=== PATIENT | female | born 1970 | race Native Hawaiian/Other Pacific Islander ===

== ENCOUNTER 2016-06-08 22:53 | Observation (INO) | payer BC ==
[2016-06-08 22:56] VITALS: BMI 29.2
--- NOTE | 2016-06-08 23:09 | ED PDOC ---
Arrival/HPI - General Chief Complaint: Chest Pain Time Seen by Provider: 06/08/16 22:54 Historian: Patient - History of Present Illness Narrative History of Present Illness (Text): 06/08/16 23:04 Chandrika Sterling is a 46 year old female, with a history of intermittent asthma and migraines, presents to the emergency department complaining of palpitations and chills which began 20 minutes prior to arrival. Patient also states that she felt tingling sensation on fingertips few days ago, which has resolved. States that she experienced mild left sided arm weakness when the symptoms presented, but states it has resolved now. Also reports of nausea. Denies fever , headache, dizziness, shortness of breath, diarrhea, vomiting, urinary symptoms or any other complaints at this time. Time/Duration: 1/2 hour Symptom Onset: Gradual Symptom Course: Unchanged Severity Level: Mild Activities at Onset: Light Past Medical History - Provider Review Nursing Documentation Reviewed: Yes - Pulmonary Hx Asthma: (yes; intermittent) - Psychiatric Hx Substance Use: No Family/Social History - Physician Review Nursing Documentation Reviewed: Yes Family/Social History: No Known Family HX Smoking Status: no Hx Alcohol Use: No Hx Substance Use: No Allergies/Home Meds Allergies/Adverse Reactions: Allergies Iodine and Iodide Containing Produc Allergy (Verified 06/08/16 23:01) RASH diphenhydramine [From Benadryl] Adverse Reaction (Verified 06/08/16 23:01) DIZZINESS Review of Systems - Physician Review All systems were reviewed & negative as marked: Yes - Review of Systems Constitutional: absent: Fatigue Respiratory: Normal. absent: SOB, Cough, Sputum Cardiovascular: Palpitations. absent: Chest Pain Gastrointestinal: Nausea. absent: Abdominal Pain, Vomiting, Appetite Changes Genitourinary Female: Normal Neurological: Normal. absent: Headache, Dizziness Psychiatric: Normal Physical Exam Vital Signs Reviewed: Yes Vital Signs Temp Pulse Resp BP Pulse Ox 06/09/16 03:37 84 18 108/71 100 06/09/16 02:00 78 18 118/76 99 06/09/16 00:54 74 16 146/78 100 06/08/16 22:54 98.2 F 78 18 158/88 H 99 Temperature: Afebrile Blood Pressure: Normal Pulse: Regular Respiratory Rate: Normal Appearance: Positive for: Well-Appearing, Non-Toxic, Comfortable Pain Distress: None Mental Status: Positive for: Alert and Oriented X 3 - Systems Exam Head: Present: Atraumatic, Normocephalic Pupils: Present: PERRL Extroacular Muscles: Present: EOMI Conjunctiva: Present: Normal Mouth: Present: Moist Mucous Membranes Neck: Present: Normal Range of Motion Respiratory/Chest: Present: Clear to Auscultation, Good Air Exchange. No: Respiratory Distress, Accessory Muscle Use Cardiovascular: Present: Regular Rate and Rhythm, Normal S1, S2. No: Murmurs Abdomen: Present: Tenderness Back: Present: Normal Inspection Upper Extremity: Present: Normal Inspection. No: Cyanosis, Edema Lower Extremity: Present: Normal Inspection. No: Edema Neurological: Present: GCS=15, CN II-XII Intact, Speech Normal, Motor Func Grossly Intact, Normal Sensory Function Skin: Present: Warm, Dry, Normal Color. No: Rashes Psychiatric: Present: Alert, Oriented x 3, Normal Insight, Normal Concentration Medical Decision Making ED Course and Treatment: 06/08/16 23:11 Impression: A 46 year old female who presents to the emergency department complaining of palpitations which began 20 minutes prior to arrival. Plan: -- EKG -- Labs, cardiac enzymes -- HCG -- Urinalysis -- Reassess and disposition Progress Notes: 06/08/16 23:12 EKG reviewed by me: NSR @ [address] abnormality possible digitalis effect. 06/09/16 01:52 CT Head results reviewed: FINDINGS: Brain: No hemorrhage. No significant white matter disease. No edema. Small fat density lesion in the RIGHT frontal lobe. This may represent a small lipoma. Ventricles: Unremarkable. No ventriculomegaly. Bones/joints: Unremarkable. No acute fracture. Soft tissues: Unremarkable. Sinuses: Unremarkable as visualized. No acute sinusitis. Mastoid air cells: Unremarkable as visualized. No mastoid effusion. IMPRESSION: No evidence of acute intracranial hemorrhage. No midline shift or hydrocephalus. 06/09/16 06:04 Case discussed with who agrees with the plan to observe patient in remote telemetry for chest pain. Accepts a patient under her service. - Lab Interpretations Lab Results: 06/08/16 23:20 06/08/16 23:20 Lab Results 06/09/16 00:00: Urine HCG, Qual Negative 06/09/16 00:00: Urine Color Light yellow, Urine Appearance Slight-cloudy, Urine pH 6.0, Ur Specific [place] <= 1.005, Urine Protein Negative, Urine Glucose (UA ) Negative, Urine Ketones Negative, Urine Blood Large H, Urine Nitrate Negative , Urine Bilirubin Negative, Urine Urobilinogen 0.2, Ur Leukocyte Esterase Negative, Urine RBC 0 - 2, Urine WBC 0 - 2, Ur Epithelial Cells 0 - 2, Urine Bacteria Small 06/08/16 23:20: D-Dimer, Quantitative 0.29 06/08/16 23:20: Sodium 137, Potassium 3.5 L, Chloride 102, Carbon Dioxide 23, Anion Gap 16, BUN 13, Creatinine 0.7, Est GFR ( Amer) > 60, Est GFR (Non- Af Amer) > 60, Random Glucose 169 H, Calcium 9.4, Magnesium 2.0, Total Bilirubin 0.6, AST 27, ALT 31, Alkaline Phosphatase 45, Lactate Dehydrogenase 480, Total Creatine Kinase 282 H, CK-MB (CK-2) 1.3, CK-MB (CK-2) % Cancelled, Troponin I < 0.01, Total Protein 8.1, Albumin 4.1, Globulin 4.0, Albumin/ Globulin Ratio 1.0 L 06/08/16 23:20: WBC 9.3, RBC 4.40, Hgb 13.4, Hct 38.0, MCV 86.4, MCH 30.5, MCHC 35.3, RDW 12.8, Plt Count 274, MPV 9.3, Gran % 57.2, Lymph % (Auto) 31.0, Brown % (Auto) 6.0, Eos % (Auto) 5.5 H, Baso % (Auto) 0.3, Gran # 5.34, Lymph # 2.9, Brown # 0.6, Eos # 0.5, Baso # 0.03 I have reviewed the lab results: Yes - RAD Interpretation Radiology Orders: 06/09/16 00:01 HEAD W/O CONTRAST [CT] Stat CHEST ONE VIEW [RAD] Stat Pants Presser: Radiologist - EKG Interpretation Interpreted by ED Physician: Yes Type: 12 lead EKG - Medication Orders Current Medication Orders: Discontinued Medications Acetaminophen (Tylenol 325mg Tab) 650 mg PO Q4H PRN PRN Reason: Pain, Mild (1-3) Last Admin: 05/02/17 08:19 Dose: 650 mg Aspirin (Ecotrin) 325 mg PO STAT STA Stop: 06/09/16 00:04 Last Admin: 06/09/16 01:31 Dose: 325 mg Naproxen (Anaprox Ds) 550 mg PO ONCE ONE Stop: 06/09/16 11:48 Last Admin: 06/09/16 12:17 Dose: 550 mg Potassium Chloride (K-Dur 20 Meq Er Tab) 20 meq PO ONCE ONE Stop: 06/09/16 03:41 Last Admin: 06/09/16 03:49 Dose: 20 meq - Feribe Statement The provider has reviewed the documentation as recorded by the Flora Martinez Provider Attestation: All medical record entries made by the Flora were at my direction and personally dictated by me. I have reviewed the chart and agree that the record accurately reflects my personal performance of the history, physical exam, medical decision making, and the department course for this patient. I have also personally directed, reviewed, and agree with the discharge instructions and disposition. Disposition/Present on Arrival - Present on Arrival Any Indicators Present on Arrival: No History of DVT/PE: No History of Uncontrolled Diabetes: No Urinary Catheter: No History of Decub. Ulcer: No History Surgical Site Infection Following: None - Disposition Have Diagnosis and Disposition been Completed?: Yes Diagnosis: Chest pain, Palpitations Disposition: HOSPITALIZED Disposition Time: 06:00 Condition: GOOD
[2016-06-08 23:29] LABS: ADD MANUAL DIFF? NO
[2016-06-08 23:35] LABS: BASO # 0.03 K/mm3 (0.0-2.0); BASO % 0.3 % (0.0-3.0); EOS # 0.5 (0.0-0.7); EOS % 5.5 % (1.5-5.0); GRAN # 5.34 (1.4-6.5); GRAN % 57.2 % (50.0-68.0); LYMPH # 2.9 (1.2-3.4); MEAN CELL VOLUME 86.4 fL (80.0-105.0); MEAN CORPUSCULAR HEMOGLOBIN 30.5 pg (25.0-35.0); MEAN CORPUSCULAR HGB CONC 35.3 g/dl (31.0-37.0); MEAN PLATELET VOLUME 9.3 fl (7.0-11.0); MONO # 0.6 (0.1-0.6); PLATELET COUNT 274 10^3/uL (120.0-450.0); RED CELL DISTRIBUTION WIDTH 12.8 % (11.5-14.5); WHITE BLOOD COUNT 9.3 10^3/ul (4.5-11.0)
[2016-06-08 23:42] LABS: ALKALINE PHOSPHATASE 45 U/L (38-133); ALT/SGPT 31 U/L (7-56); AST/SGOT 27 U/L (15-39); BILIRUBIN,TOTAL 0.6 mg/dL (0.2-1.3); BLOOD UREA NITROGEN 13 mg/dL (7-21); CALCIUM 9.4 mg/dL (8.4-10.5); CARBON DIOXIDE 23 mmol/L (21-33); CHLORIDE 102 mmol/L (98-107); GFR AFRICAN-AMERICAN > 60; POTASSIUM 3.5 mmol/L (3.6-5.0); SODIUM 137 mmol/L (132-148); TOTAL PROTEIN 8.1 g/dL (5.8-8.3)
[2016-06-08 23:54] LABS: GLUCOSE,RANDOM 169 mg/dL (70-110); TROPONIN I < 0.01 ng/mL
[2016-06-09] MEDS ORDERED: Aspirin 325 mg EC Tablets PO STA (00:03)
[2016-06-09 00:07] LABS: URINE BILIRUBIN NEGATIVE (NEGATIVE); URINE BLOOD LARGE (NEGATIVE); URINE GLUCOSE (UA) NEGATIVE (NEGATIVE); URINE KETONE NEGATIVE (NEGATIVE); URINE LEUKOCYTE ESTERASE NEGATIVE Leu/uL (NEGATIVE); URINE PROTEIN NEGATIVE mg/dL (<30 mg/dL); URINE UROBILINOGEN 0.2 E.U./dL (<1 E.U./dL)
[2016-06-09 00:09] LABS: URINE APPEARANCE SLIGHT-CLOUDY (CLEAR); URINE COLOR LIGHT YELLOW (YELLOW)
[2016-06-09 00:19] LABS: URINE BACTERIA SMALL (NEG); URINE EPITHELIAL CELLS 0 - 2 /hpf (0-5); URINE RBC 0 - 2 /hpf (0-2); URINE WBC 0 - 2 /hpf (0-6)
[2016-06-09] MEDS ORDERED: Potassium Chloride 20 mEq ER Tab PO ONE (03:40)
[2016-06-09 04:23] VITALS: RESP 20; TEMP 98.6
[2016-06-09 05:22] VITALS: O2SAT 98
--- NOTE | 2016-06-09 07:45 | CT ---
PROCEDURE: CT HEAD WITHOUT CONTRAST. HISTORY: Facial numbness COMPARISON: None available. TECHNIQUE: Axial computed tomography images were obtained through the head/brain without intravenous contrast. Radiation dose: Total exam DLP = 733.86 mGy-cm. This CT exam was performed using one or more of the following dose reduction techniques: Automated exposure control, adjustment of the mA and/or kV according to patient size, and/or use of iterative reconstruction technique. FINDINGS: HEMORRHAGE: No intracranial hemorrhage. BRAIN: Coulter-white matter differentiation is preserved. There is no mass, mass effect or abnormal extra-axial fluid collection. VENTRICLES: The ventricles are normal in size, shape and configuration. CALVARIUM: There is no calvarial fracture or extracranial soft tissue swelling. PARANASAL SINUSES: Predominantly clear. MASTOID AIR CELLS: Predominantly clear. OTHER FINDINGS: None. IMPRESSION: No acute intracranial abnormality. If there is a persistent focal neurologic deficit and an ongoing clinical concern for acute infarction, an MRI of the brain without intravenous contrast would be a more sensitive modality for evaluation of hyperacute/acute ischemic infarction. A preliminary report was provided by [employer].
--- NOTE | 2016-06-09 08:12 | RAD ---
PROCEDURE: CHEST RADIOGRAPH, 1 VIEW HISTORY: pain COMPARISON: None available. FINDINGS: LUNGS: Clear. PLEURA: No pneumothorax or pleural fluid seen. CARDIOVASCULAR: Normal. OSSEOUS STRUCTURES: No significant abnormalities. VISUALIZED UPPER ABDOMEN: Normal. OTHER FINDINGS: None. IMPRESSION: No active disease.
[2016-06-09 10:39] VITALS: BP 122/79; PULSE 72
[2016-06-09] MEDS ORDERED: Naproxen 550 mg Tab PO ONE (11:47)
--- NOTE | 2016-06-09 13:29 | HP ---
HISTORY OF PRESENT ILLNESS: The patient is a 46-year-old seen and examined. The patient has multipl e miscellaneous complaints including chest pressure, pain, more with movement, also complained of ass ociated feelings of tingling in both hands, palpitations, off and on headache, dizziness, lightheaded ness. The patient states she had similar symptoms last year. She had multiple attacks of near synco pe. She went to [facility]. Workup was done, but she did not get any answer. 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 So she went to see some doctor in [place]. They found that she has B12 de ficiency with vitamin D deficiency that she was treated. She felt a little better. She saw her the [facility] doctor a couple of weeks ago, and she was told to see counseling aide, and she has appointment on . PAST MEDICAL HISTORY: She has significant past medical history of multiple episodes of syncope last year, but no conclusive workup was done. She even had Holter placed and was told she was okay. She does admit gaining some weight. ALLERGIES: SHE IS ALLERGIC TO IODINE, IODINE-CONTAINING ____, AND DIPHENHYDRAMINE. MEDICATIONS AT HOME: She just takes multivitamins. Otherwise, she does not take anything. FAMILY HISTORY: Significant for mom of diabetic ketoacidosis, and her father had sudden cardiac arrest. She is very apprehensive about it. SOCIAL HISTORY: She is single, has a daughter, ____, who is 21 years old. 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 REVIEW OF SYSTEMS: Significant for left-sided chest pain, bilateral hand numbness, off and on tingli ng. PHYSICAL EXAMINATION: GENERAL: The patient is awake and alert, communicative. VITAL SIGNS: She is afebrile, pulse 72, respirations 20, blood pressure 122/79. LUNGS: Bilateral fair airflow. No rhonchi or crackle. HEART: S1, S2 audible. ABDOMEN: Soft, nontender. No rebound, no guarding. NEUROLOGIC: She is awake and alert, communicative. EXTREMITIES: Bilateral legs, no edema. LABORATORY DATA: WBC is 9.3, hemoglobin 13.4, hematocrit 38, platelets of 274. Chemistry: Sodium 1 37, potassium 3.5, chloride 103. BUN 13, creatinine 0.7, blood sugar 169. LFTs are within normal li mits. CPK is 282. Troponin is negative. Urinalysis is large blood. She had CT scan of the head done that is negative. X-ray chest is unremarkable. PLAN: The patient was seen by counseling aide, and this chest pain seemed to be muscular. The patient has appointment with cardiology. She will follow up with that counseling aide in 2 weeks. There are no signs of acute coronary syndrome at this point, and since she was admitted, her heart rate has to be running in 70s. Her palpitation could be apprehension and anxiety-related. So plan is I will give her 1 dose of Naprosyn, watch her for a few hours, and if her pain dissipates, she can be discharged home on Xanax on as-needed basis. She will follow with her PMD and counseling aide as outpatient. Marry Vences MD cc: [id number] TT: 06/09/2016 13:28:34 brandy
--- NOTE | 2016-06-09 14:03 | CON ---
DATE: 06/09/2016 REASON FOR CONSULTATION: Cardiac evaluation, chest pain, history of palpitations in the past. Negat allan cardiac workup with stress test and Holter. 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 The patient is being followed by gasket maker. Denies any chest pain, dyspnea on exertion. PAST MEDICAL HISTORY: Nothing significant. SOCIAL HISTORY: Denies smoking. Denies any history of alcohol abuse. FAMILY HISTORY: Significant for coronary artery disease, sudden in father. Also mother has co ronary artery disease, so patient is very much concerned and wanted cardiac evaluation. Previous cardiac workup as follows: The patient had a stress test 1 year ago in [place] and a Cee er, was negative. ALLERGIES: IODINE CONTRAST AND IV BENADRYL. REVIEW OF SYSTEMS: Per HPI. PHYSICAL EXAMINATION: VITAL SIGNS: Temperature afebrile, heart rate 72, blood pressure 122/79. HEENT: PERRLA. Extraocular muscles intact. NECK: Supple. No carotid bruits. No thyromegaly. CHEST: Clear to auscultation. HEART: S1, S2 regular. ABDOMEN: Soft. EXTREMITIES: Clubbing and cyanosis negative. LABORATORY DATA: Blood workup as follows: WBC 9.3, hemoglobin , hematocrit 38, platelet count 274. Chemistry shows sodium 137, potassium 3.5, chloride 102, carbon dioxide 23, anion gap of 13, BU N 7.7, creatinine 0.7, random glucose 169. Total CPK 282. Troponin 0.01. IMPRESSION: Atypical chest pain, no evidence of acute myocardial infarction. EKG pretty benign. On ly risk factor is a family history of coronary artery disease. The patient is still active menstruat ing. RECOMMENDATION: Discussed in length with the patient. The patient has an appointment in [facility] cardiology on 06/23, so suggested to have a stress test followup, which patient is going to have a stress test with the gasket maker. 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 Discussed at length with the pa tient. Also will discuss with Dr. Vences. Thank you, Dr. Vences, for providing the opportunity in taking care of the patient. Fritz Santa MD cc: [id number] TT: 06/09/2016 14:03:09 Confirmation # [id number] Dictation # [id number] rn
--- NOTE | 2016-06-09 22:51 | CARD ---
APPROVED REPORT EKG Measurement Heart [id number] <Conclusion> Normal sinus rhythm ST abnormality, possible digitalis effect Abnormal ECG
--- NOTE | 2016-07-29 22:51 | DS ---
The patient is a 46-year-old, who was admitted on 06/09/2016 with chest pain and pressure, more so on movement. She was found to have atypical chest pain, was evaluated by Dr. Santa. There was no inter vention needed, so she was discharged home on the same day. She was advised to follow with Dr. Santa and to have a stress test done as outpatient. Marry Vences MD cc: [id number] TT: 07/29/2016 22:50:51 ln
== END 2016-06-09 16:26 | disposition home or self-care (01) ==
LOC: ED 22:53 → ERH 06-09 03:13 → 3RSO 06-09 04:20
PROVIDERS: ADMIT Internal Medicine; ATTEND Internal Medicine
DX: R07.89 Other chest pain (principal); R00.2 Palpitations; F41.9 Anxiety disorder, unspecified; J45.20 Mild intermittent asthma, uncomplicated; E55.9 Vitamin D deficiency, unspecified; E53.8 Deficiency of other specified B group vitamins; Z82.49 Family history of ischemic heart disease and other diseases of the circulatory system
CPT/HCPCS: 70450; 71010; 80053; 81001; 82550; 82553; 83615; 83735; 84484; 84703; 85025; 85378; 93005; 99285; G0378

== ENCOUNTER 2016-07-25 05:19 | Observation (INO) | payer BC ==
--- NOTE | 2016-07-25 05:53 | ED PDOC ---
Arrival/HPI - General Chief Complaint: Weakness/Neurological Deficit Time Seen by Provider: 07/25/16 05:27 Historian: Patient - History of Present Illness Narrative History of Present Illness (Text): 07/25/16 06:00 A 46 year old female, whose past medical history includes asthma and migraines, presents to the emergency department complaining of left arm weakness and warmth to left leg that developed 6 hours ago. Patient also notes tongue numbness that developed 2 hours ago. Patient reports her fingers usually feel numb in the mornings. Patient denies headaches, weakness in legs or any other complaints at this time. Symptom Onset: Sudden Symptom Course: Improving Activities at Onset: Rest Context: Home Past Medical History - Provider Review Nursing Documentation Reviewed: Yes - Cardiac Hx Cardiac Disorders: No - Pulmonary Hx Asthma: Yes (yes; intermittent) - Neurological Hx Neurological Disorder: Yes Hx Migraine: Yes - HEENT Hx HEENT Disorder: No (wears glasses) - Renal Hx Renal Disorder: No - Endocrine/Metabolic Hx Endocrine Disorders: No - Hematological/Oncological Hx Blood Disorders: No - Integumentary Hx Dermatological Disorder: No - Musculoskeletal/Rheumatological Hx Falls: No - Gastrointestinal Hx Gastrointestinal Disorders: Yes Hx Gastroesophageal Reflux: Yes - Genitourinary/Gynecological Hx Genitourinary Disorders: Yes Hx Urinary Tract Infection: Yes - Psychiatric Hx Psychophysiologic Disorder: No Hx Substance Use: No Family/Social History - Physician Review Nursing Documentation Reviewed: Yes Family/Social History: No Known Family HX Smoking Status: Current Some Days Smoker Hx Alcohol Use: Yes Frequency of alcohol use: Socially Hx Substance Use: No Allergies/Home Meds Allergies/Adverse Reactions: Allergies Iodine and Iodide Containing Produc Allergy (Verified 06/08/16 23:01) RASH diphenhydramine [From Benadryl] Adverse Reaction (Verified 06/08/16 23:01) DIZZINESS Review of Systems - Physician Review All systems were reviewed & negative as marked: Yes - Review of Systems ENT: Other (tongue numbness) Musculoskeletal: Other (L leg warmth; L arm weakness; no weakness in legs) Neurological: absent: Headache Physical Exam Vital Signs Reviewed: Yes Vital Signs Temp Pulse Resp BP Pulse Ox 07/25/16 05:26 98.4 F 79 16 134/90 98 Temperature: Afebrile Blood Pressure: Normal Pulse: Regular Respiratory Rate: Normal Appearance: Positive for: Well-Appearing, Non-Toxic, Comfortable Pain Distress: None Mental Status: Positive for: Alert and Oriented X 3 - Systems Exam Head: Present: Atraumatic, Normocephalic Pupils: Present: PERRL Extroacular Muscles: Present: EOMI Conjunctiva: Present: Normal Mouth: Present: Moist Mucous Membranes Neck: Present: Normal Range of Motion Respiratory/Chest: Present: Clear to Auscultation, Good Air Exchange. No: Respiratory Distress, Accessory Muscle Use Cardiovascular: Present: Regular Rate and Rhythm, Normal S1, S2. No: Murmurs Abdomen: Present: Normal Bowel Sounds. No: Tenderness, Distention, Peritoneal Signs Back: Present: Normal Inspection Upper Extremity: Present: Normal Inspection. No: Cyanosis, Edema Lower Extremity: Present: Normal Inspection. No: Edema Neurological: Present: GCS=15, CN II-XII Intact, Speech Normal, Other ( subjectively decrease sensation in L side of face) Skin: Present: Warm, Dry, Normal Color. No: Rashes Psychiatric: Present: Alert, Oriented x 3, Normal Insight, Normal Concentration Medical Decision Making ED Course and Treatment: 07/25/16 05:51 EKG: Ordered, reviewed, and independently interpreted the EKG. Rate : 80 BPM Rhythm : NSR Interpretation : Normal axis, Normal intervals, No acute ischemia Comparison : No previous EKG for comparison. - Lab Interpretations Lab Results: 07/25/16 05:30 07/25/16 05:30 Lab Results 07/25/16 06:37: POC Glucose (mg/dL) 111 H 07/25/16 05:30: Sodium 135, Potassium 4.7, Chloride 104, Carbon Dioxide 20 L, Anion Gap 16, BUN 19, Creatinine 0.7, Est GFR ( Amer) > 60, Est GFR (Non- Af Amer) > 60, Random Glucose 103, Calcium 9.0, Total Bilirubin 1.6 H, AST 47 H , ALT 11, Alkaline Phosphatase 45, Troponin I 0.02 D, Total Protein 8.2, Albumin 4.4, Globulin 3.8, Albumin/Globulin Ratio 1.2, Triglycerides 1433 H, Cholesterol 156, LDL Cholesterol Direct < 30, HDL Cholesterol 15 L 07/25/16 05:30: WBC 11.0, RBC 4.55, Hgb 14.3, Hct 39.6, MCV 87.0, MCH 31.4, MCHC 36.1, RDW 12.8, Plt Count 270, MPV 9.9, Gran % 69.0 H, Lymph % (Auto) 19.9 L, [place] % (Auto) 6.7 H, Eos % (Auto) 4.2, Baso % (Auto) 0.2, Gran # 7.61 H, Lymph # 2.2, [place] # 0.7 H, Eos # 0.5, Baso # 0.02 - RAD Interpretation Radiology Orders: 07/25/16 05:52 CHEST PORTABLE [RAD] Stat 07/25/16 05:53 HEAD W/O CONTRAST [CT] Stat - EKG Interpretation Interpreted by ED Physician: Yes Type: 12 lead EKG - Medication Orders Current Medication Orders: Discontinued Medications Aspirin (Aspirin Chewable) 324 mg PO STAT STA Stop: 07/25/16 07:13 NIHSS Scale ([place]) Time Performed: 05:35 rTPA Inclusion/Exclusion - Refusal of Treatment Patient Refused Treatment: No - Inclusion Criteria for Altepase Patient is 18 years or Older: Yes The Clinical Diagnosis of Ischemic Stroke That is Causing a Potentially Disabling Neurological Deficit: Yes Time of Onset is Well Established to be Less Than 270 Minute Before Treatment Would Begin: No Risk/Benefit Discussed With Patient/Family Member Present: No NIHSS Stroke Scale 3 - Date/Time Evaluation Performed Time Performed: 05:35 - How Severe is the Stroke Level of Consciousness: 0=Alert LOC to Questions: 0=Both comments correct LOC to commands: 0=Obeys both correctly Best Gaze: 0=Normal Visual: 0=No visual loss Facial: 0=Normal Motor Arm - Left: 0=No drift Motor Arm - Right: 0=No drift Motor Leg - Left: 0=No drift Motor Leg - Right: 0=No drift Limb Ataxia: 0=Absent Sensory: 1=Mild to moderate loss Best Language: 0=No aphasia Dysarthia: 0=Normal articulation Extinction & Inattention (Neglect): 0=Normal, no object Score: 1 Severity Of Stroke: 1-4 = Minor Stroke - Scribe Statement The provider has reviewed the documentation as recorded by the Feribfranca Brown Provider Scribe Attestation: All medical record entries made by the Scribe were at my direction and personally dictated by me. I have reviewed the chart and agree that the record accurately reflects my personal performance of the history, physical exam, medical decision making, and the department course for this patient. I have also personally directed, reviewed, and agree with the discharge instructions and disposition. Disposition/Present on Arrival - Present on Arrival Any Indicators Present on Arrival: No History of DVT/PE: No History of Uncontrolled Diabetes: No Urinary Catheter: No History of Decub. Ulcer: No History Surgical Site Infection Following: None - Disposition Have Diagnosis and Disposition been Completed?: Yes Diagnosis: Left-sided weakness Disposition Time: 07:00 Condition: STABLE
[2016-07-25 06:20] LABS: ADD MANUAL DIFF? NO
[2016-07-25 06:25] LABS: BASO # 0.02 K/mm3 (0.0-2.0); BASO % 0.2 % (0.0-3.0); EOS # 0.5 (0.0-0.7); EOS % 4.2 % (1.5-5.0); GRAN # 7.61 (1.4-6.5); HEMATOCRIT 39.6 % (36.0-48.0); LYMPH # 2.2 (1.2-3.4); LYMPH % 19.9 % (22.0-35.0); MEAN CORPUSCULAR HEMOGLOBIN 31.4 pg (25.0-35.0); MEAN CORPUSCULAR HGB CONC 36.1 g/dl (31.0-37.0); MEAN PLATELET VOLUME 9.9 fl (7.0-11.0); MONO # 0.7 (0.1-0.6); MONO % 6.7 % (1.0-6.0); PLATELET COUNT 270 10^3/uL (120.0-450.0); RED CELL DISTRIBUTION WIDTH 12.8 % (11.5-14.5)
[2016-07-25 06:35] LABS: ALB/GLOB RATIO 1.2 (1.1-1.8); ALKALINE PHOSPHATASE 45 U/L (38-133); ALT/SGPT 11 U/L (7-56); AST/SGOT 47 U/L (15-39); BILIRUBIN,TOTAL 1.6 mg/dL (0.2-1.3); BLOOD UREA NITROGEN 19 mg/dL (7-21); CARBON DIOXIDE 20 mmol/L (21-33); CHLORIDE 104 mmol/L (98-107); CHOLESTEROL 156 mg/dL (130-200); GFR AFRICAN-AMERICAN > 60; GLUCOSE,RANDOM 103 mg/dL (70-110); POTASSIUM 4.7 mmol/L (3.6-5.0); SODIUM 135 mmol/L (132-148); TOTAL PROTEIN 8.2 g/dL (5.8-8.3)
[2016-07-25 06:44] LABS: TROPONIN I 0.02 ng/mL
--- NOTE | 2016-07-25 07:07 | CT ---
EXAM: CT Head Without Intravenous Contrast CLINICAL HISTORY: 46 years old, female; Signs and symptoms; Dizziness; Additional info: Left side weak TECHNIQUE: Axial computed tomography images of the head/brain without intravenous contrast. This CT exam was performed using one or more of the following dose reduction techniques: automated exposure control, adjustment of the mA and/or kV according to patient size, and/or use of iterative reconstruction technique. COMPARISON: CT - HEAD W/O CONTRAST 06/09/2016 1:03:23 AM FINDINGS: Brain: Examination of the brain demonstrates normal structure and attenuation.The cortical baeza / white matter interfaces are preserved throughout the brain.No acute infarction, masses or hemorrhage is seen. No acute intracranial abnormality is identified.There is no hyperdense MCA sign.Examination of the posterior fossa demonstrates no significant abnormality. 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 No edema. Ventricles: The ventricular system is not dilated and is appropriate for the patient's age. Bones/joints: Unremarkable. No acute fracture. Soft tissues: Unremarkable. Sinuses: Unremarkable as visualized. No acute sinusitis. Mastoid air cells: Unremarkable as visualized. No mastoid effusion. IMPRESSION: No acute infarction, masses or hemorrhage is seen. No acute intracranial abnormality is identified.There has been no adverse interval change since the previous study.
--- NOTE | 2016-07-25 09:21 | RAD ---
HISTORY: weak COMPARISON: Chest x-ray performed 06/09/16 TECHNIQUE: Chest, one view. FINDINGS: External cardiac monitoring leads present. LUNGS: No focal consolidation. 1.4 cm rounded density at the right lung base. Please note that chest x-ray has limited sensitivity for the detection of pulmonary masses. PLEURA: No significant pleural effusion identified. No definite pneumothorax . CARDIOVASCULAR: The cardiomediastinal silhouette appears within normal limits of size. OSSEOUS STRUCTURES: No acute osseous abnormality identified. VISUALIZED UPPER ABDOMEN: Unremarkable. OTHER FINDINGS: None. IMPRESSION: No focal consolidation, significant pleural effusion, or definite pneumothorax identified. 1.3 cm nodular density is noted at the right lung base. Considerations include nipple shadow however pulmonary nodule cannot be excluded. Outpatient repeat chest x-ray with nipple markers or CT of the chest suggested for further evaluation. Findings discussed with YULIET Witt on 07/25/16 at 9:17 a.m..
[2016-07-25] MEDS ORDERED: Sodium Chloride 0.45% 1,000 ML IV SCH (10:30)
[2016-07-25 13:04] VITALS: BMI 30.2
[2016-07-25] MEDS ORDERED: Pneumococcal 23-Valent Vaccine IM ONE (13:05)
--- NOTE | 2016-07-25 14:09 | CON ---
DATE: 07/25/2016 CHIEF COMPLAINT: Left-sided weakness. HISTORY OF PRESENT ILLNESS: A 46-year-old woman with history of migraine headaches, asthma who prese nted with left arm weakness and some paresthesias said she has noticed of the tongue. She has been g etting migraine headaches average of once week and has recently been stressed. She had elevated trig lyceride levels of 1433. She has a family history of hypertriglyceridemia as well. She does not mikala e a daily aspirin. Currently, no focal weakness of the extremities. No pronator drift seen. CT hea d showed no acute intracranial abnormalities. She denies any headaches at this time. PAST MEDICAL HISTORY: Asthma, migraines. REVIEW OF SYSTEMS: 14-point review of systems negative except as per HPI. SOCIAL HISTORY: No illicit drug use, smoking, or ETOH abuse. ALLERGIES: ALLERGIC TO IODINE AND DIPHENHYDRAMINE. FAMILY HISTORY: Noncontributory. PHYSICAL EXAMINATION: VITAL SIGNS: Temperature 98.4, pulse rate of 87, blood pressure 148/92, respiratory rate 16. GENERAL: The patient is sitting up in bed in no acute distress. HEENT: Atraumatic, normocephalic. PERRLA. Extraocular muscles intact. NECK: Supple, no JVD, no adenopathy noted. LUNGS: Clear to auscultation. No adventitious sounds. HEART: S1, S2, normal rate and rhythm. No murmurs, rubs, or gallops. ABDOMEN: Soft, nontender, nondistended. Bowel sounds are present. EXTREMITIES: No clubbing, no cyanosis. Peripheral pulses 2+ felt bilaterally. LABORATORIES: Sodium 135, potassium 4.7, chloride 104, carbon dioxide 20, BUN of 19, creatinine 0.7, random glucose of 103. Triglycerides of 1433. ASSESSMENT AND PLAN: This is a 46-year-old woman with history of migraine headaches, history of asth ma who came in with left arm weakness, but no left weakness without any headaches and some paresthesi as of her tongue. She has been getting really stressed recently, has been having migraine headaches at least 1 week. At this time, her neuro exam is nonfocal, but she has hypertriglyceridemia on her l abs. IMPRESSION: I feel like her presentation is more of a migraine phenomena with motor aura and migrain e without headache, given that she has motor aura which has subsided. AT THIS TIME, RECOMMEND: 1. Aspirin 81 mg with breakfast every morning. 2. Address her underlying hypertriglyceridemia. May need to be on a fibrate and low fat and low car bohydrate diet. 3. Advise weight reduction. 4. Will recommend to follow up with me in outpatient for further headache, migraine management. 5. Could consider coenzyme Q10 400 mg p.o. daily for headache prevention as well as will help with h er cholesterol issues. At this time, continue with current present medical management. She is clini lamin stable from my standpoint. Kasi Bryant MD cc: [id number] TT: 07/25/2016 14:09:32 Confirmation # [id number] Dictation # [id number]
--- NOTE | 2016-07-25 15:12 | HP ---
I saw the patient in her room this morning. She is comfortable, maybe a little bit better than when she came in last night through the Emergency Room. She is a 46-year-old female who comes in with wea kness in the left arm, warmth to the left leg, about 6 hours ago. The tongue was numb. That also de veloped 2 hours earlier to the ER. Fingers felt numb in the morning, although no headache or weaknes s in the legs. PAST MEDICAL HISTORY: She has a past medical history that includes migraines and asthma. She wears glasses. She has GERD. She had urinary tract infections in the past. FAMILY HISTORY: There is no known family history. SOCIAL HISTORY: She smokes sometimes. She drinks alcohol socially, no substance abuse. ALLERGIES: SHE HAS ALLERGIES TO IODINE AND BENADRYL. MEDICATIONS: She is not taking any medications. REVIEW OF SYSTEMS: No changes in vision or hearing. Tongue is numb, the lips are numb. Throat is o kristen. Neck is okay. Left side is weak, that is the left arm, left shoulder feels drooped her. No ch est pain or palpitations. No shortness of breath or coughing, no abdominal pain. The left leg felt numb and weak on the left side. Both legs felt weak. This is a new onset of less than 6-8 hours. PHYSICAL EXAMINATION VITAL SIGNS: She has a 98.4 temp, 79 pulse, 16 respiratory rate, 134/90 blood pressure, 98% O2 sat o n room air. GENERAL: Head atraumatic, normocephalic, well appearing, nontoxic, comfortable, alert and talking fi ne, alert and oriented x 3. Extraocular muscles are intact. Pupils reactive to light and accommodat ion. HEENT: Normocephalic, atraumatic. Throat is moist, no erythema. NECK: Supple, no JVD. HEART: Regular rate. Normal S1, S2. LUNGS: Clear to auscultation bilaterally. ABDOMEN: Soft, nontender, positive bowel sounds, no guarding, no rebound, no CVA tenderness. EXTREMITIES: No edema of the lower extremities. She tells that the left side is a little bit droopy and weak. Right now I do not see the legs being weak, maybe the left shoulder could be a little bit drooped. NEUROLOGIC: GCS is 15. Cranial nerves II-XII grossly intact. Speech is normal. Tongue is midline. Equal strength bilaterally. The left face is fine. Maybe decreased sensation in the face, the lip s. SKIN: Warm and dry. PSYCHIATRIC: Alert and oriented x 3. NECK: Thyroid midline, nonpalpable. Appreciable lymphadenopathy. LABORATORY DATA: She had a 135 sodium, potassium 4.7, BUN 19, creatinine 0.7, GFR is greater than 60 , sugar is 103, calcium is 9, total bili is 1.6, AST is 47, ALT is 11, alkaline phosphatase is 45. T roponin I is 0.02. Total protein is 8.2, albumin is 4.4, triglycerides of 1433, abel high, cholestero l is 156, LDL of less than 30, HDL 15, white count, 11, hemoglobin 14.3, hematocrit 39.6, platelets a re 270. She had a head CT. Head CT states no acute infarction or masses. Chest x-ray shows no focal consolidation. Has a 1.3 cm nodular density which could be a nipple shado w. She will have consults with GI for the elevated triglycerides. Annette for numbness and tingling. Dr. Dixon for the blood pressure. She will be on IV fluids, aspirin, Norvasc, Tricor, Zofran for nauseousness. She is having carotid D opplers done. A brain MRI is pending. An echo is pending. She will be able to eat. We will get ph ysical therapy involved. She is here for numbness and tingling and left side weakness, with high tri glycerides and hypertension. Ming Chambers DO cc: [id number] TT: 07/25/2016 15:11:31 ln
--- NOTE | 2016-07-25 15:45 | CARD ---
APPROVED REPORT EKG Measurement Heart [id number] [place] [id number] [id number] <Conclusion> Normal sinus rhythm Normal ECG
--- NOTE | 2016-07-25 18:51 | CON ---
DATE: 07/25/2016 REASON FOR CONSULTATION: Left arm weakness. HISTORY OF PRESENT ILLNESS: The patient is a 46-year-old female who has a history of bronchial asthm a and migraines in the past. She presented because of left arm weakness as hot feeling involving the left leg and the left side of the face. The patient denies any speech difficulty; however, she did recall at the time of calling EMS, when EMS asked the patient about the address, the patient could no t remember and at this time she asked her daughter in the house about the exact addresses. The patie nt recovered all her symptoms after arriving to the telemetry unit. The patient denies any headache or blurry vision or speech difficulty. SOCIAL HISTORY: The patient is a nonsmoker. 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 REVIEW OF SYSTEMS: No nausea or vomiting, no fever or chills. MEDICATIONS: Aspirin 81 mg once a day, Norvasc 2.5 mg once a day, half normal saline at 60 mL an greg r, Tricor 145 mg once a day, Zofran 4 mg intravenously q.6 hours p.r.n. PHYSICAL EXAMINATION: GENERAL: The patient is a middle-aged female who does not appear to be in any distress. VITAL SIGNS: Blood pressure 148/92, heart rate 87, temperature 98.4, respirations 16. HEENT: Normocephalic. NECK: No JVD. CHEST: Clear. HEART: S1, S2 regular. ABDOMEN: Soft. EXTREMITIES: No edema. LABORATORY DATA: CBC: WBC 11, hemoglobin 14.3, hematocrit 39.6, platelet count 270,000. SMA-7: So dium 135, potassium 4.7, chloride 104, CO2 of 20, glucose 103, BUN 19, creatinine 0.7. Triglycerides elevated at 1433, HDL cholesterol is below normal at 15. TSH level is within normal limit. Troponi n 0.02. Head CT scan: No acute intracranial mass or hemorrhage seen. No acute intracranial abnorma lity. EKG revealed normal sinus rhythm. ASSESSMENT: 1. Uncontrolled hypertension. 2. Rule out transient ischemic attack. 3. Hyperlipidemia. RECOMMENDATIONS: Continue aspirin 81 mg once a day, Norvasc 2.5 mg once a day, Tricor 145 mg once a day. I will review the echocardiographic study performed today and follow up carotid Doppler. Igor Bernal MD cc: [id number] TT: 07/25/2016 18:50:53 Confirmation # [id number] Dictation # [id number] dn
--- NOTE | 2016-07-25 18:53 | US ---
PROCEDURE: Bilateral carotid artery duplex ultrasound HISTORY: Carotid stenosis PHYSICIAN(S): Oli Sumner MD. TECHNIQUE: Duplex sonography and color-flow Doppler were used to evaluate the carotid bifurcations and limited segments of the vertebral arteries bilaterally. FINDINGS: There is mild smooth hypoechoic plaque noted at the carotid bifurcations bilaterally. The peak systolic velocity in the proximal right internal carotid artery is 94 cm/sec. This corresponds to a 20 to 39% proximal right ICA stenosis. Normal systolic velocities are noted in the proximal right external carotid artery. There is antegrade flow in the right vertebral artery. The peak systolic velocity in the proximal left internal carotid artery is 82 cm/sec. This corresponds to a 20 to 39% proximal left ICA stenosis. Normal systolic velocities are noted in the proximal left external carotid artery. There is antegrade flow in the left vertebral artery. IMPRESSION: 1. Bilateral 20-39% proximal ICA stenoses. 2. Antegrade flow in both vertebral arteries.
--- NOTE | 2016-07-25 23:02 | CP.PCM.PN ---
Subjective - Date & Time of Evaluation Date of Evaluation: 07/25/16 Time of Evaluation: 23:02 - Subjective Subjective: Nurse calls and tells that patient has headache. BP is 128/87----->BP was 117/77 when I arrived. Seen at bedside. Complains of headache in both eyes and back of neck.Has had head ache for all day. Similar pain as migraines that she suffers from. Also, she had some numbness in left palm but it is better now. Also has complaint of funny feeling in right palm. Has no other complaints now. No more weakness in left upper arm and leg that she came in with. ROS:Neg except as mentioned above. Medical record was reviewed. This 46 year old woman came in with complaint of weakness in left arm , warmth in left leg Has PMH of migraines, obesity, asthma , GERD , UTI, refractory error. Objective - Vital Signs/Intake and Output Vital Signs (last 24 hours): Temp Pulse Resp BP Pulse Ox 98.2 F 83 18 128/87 98 07/25/16 17:45 07/25/16 18:00 07/25/16 17:45 07/25/16 17:45 07/25/16 07:29 - Medications Medications: Current Medications Amlodipine Besylate (Norvasc) 2.5 mg PO DAILY [facility] Last Admin: 07/25/16 11:00 Dose: 2.5 mg Aspirin (Aspirin Chewable) 81 mg PO DAILY [facility] Fenofibrate (Tricor) 145 mg PO DAILY [facility] Last Admin: 07/25/16 11:00 Dose: 145 mg Sodium Chloride (Sodium Chloride 0.45%) 1,000 mls @ 60 mls/hr IV .[id number] [facility] Last Admin: 07/25/16 11:03 Dose: 60 mls/hr Ondansetron HCl (Zofran Inj) 4 mg IVP Q6H PRN PRN Reason: Nausea/Vomiting Last Admin: 07/25/16 15:16 Dose: 4 mg - Labs Labs: Most Recent Lab Values WBC 11.0 10^3/ul (4.5-11.0) 07/25/16 05:30 RBC 4.55 10^6/uL (3.5-6.1) 07/25/16 05:30 Hgb 14.3 gm/dL (12.0-16.0) 07/25/16 05:30 Hct 39.6 % (36.0-48.0) 07/25/16 05:30 MCV 87.0 fL (80.0-105.0) 07/25/16 05:30 MCH 31.4 pg (25.0-35.0) 07/25/16 05:30 MCHC 36.1 g/dl (31.0-37.0) 07/25/16 05:30 RDW 12.8 % (11.5-14.5) 07/25/16 05:30 Plt Count 270 10^3/uL (120.0-450.0) 07/25/16 05:30 MPV 9.9 fl (7.0-11.0) 07/25/16 05:30 Gran % 69.0 % (50.0-68.0) H 07/25/16 05:30 Lymph % (Auto) 19.9 % (22.0-35.0) L 07/25/16 05:30 [place] % (Auto) 6.7 % (1.0-6.0) H 07/25/16 05:30 Eos % (Auto) 4.2 % (1.5-5.0) 07/25/16 05:30 Baso % (Auto) 0.2 % (0.0-3.0) 07/25/16 05:30 Gran # 7.61 (1.4-6.5) H 07/25/16 05:30 Lymph # 2.2 (1.2-3.4) 07/25/16 05:30 [place] # 0.7 (0.1-0.6) H 07/25/16 05:30 Eos # 0.5 (0.0-0.7) 07/25/16 05:30 Baso # 0.02 K/mm3 (0.0-2.0) 07/25/16 05:30 Sodium 135 mmol/L (132-148) 07/25/16 05:30 Potassium 4.7 mmol/L (3.6-5.0) 07/25/16 05:30 Chloride 104 mmol/L (98-107) 07/25/16 05:30 Carbon Dioxide 20 mmol/L (21-33) L 07/25/16 05:30 Anion Gap 16 (10-20) 07/25/16 05:30 BUN 19 mg/dL (7-21) 07/25/16 05:30 Creatinine 0.7 mg/dL (0.5-1.4) 07/25/16 05:30 Est GFR ( Amer) > 60 07/25/16 05:30 Est GFR (Non-Af Amer) > 60 07/25/16 05:30 POC Glucose (mg/dL) 93 mg/dL (65-110) 07/25/16 21:38 Random Glucose 103 mg/dL (70-110) 07/25/16 05:30 Calcium 9.0 mg/dL (8.4-10.5) 07/25/16 05:30 Total Bilirubin 1.6 mg/dL (0.2-1.3) H 07/25/16 05:30 AST 47 U/L (15-39) H 07/25/16 05:30 ALT 11 U/L (7-56) 07/25/16 05:30 Alkaline Phosphatase 45 U/L (38-133) 07/25/16 05:30 Troponin I 0.02 ng/mL D 07/25/16 05:30 Total Protein 8.2 g/dL (5.8-8.3) 07/25/16 05:30 Albumin 4.4 g/dL (3.0-4.8) 07/25/16 05:30 Globulin 3.8 gm/dL 07/25/16 05:30 Albumin/Globulin Ratio 1.2 (1.1-1.8) 07/25/16 05:30 Triglycerides 1433 mg/dL (35-160) H 07/25/16 05:30 Cholesterol 156 mg/dL (130-200) 07/25/16 05:30 LDL Cholesterol Direct < 30 mg/dL (0-129) 07/25/16 05:30 HDL Cholesterol 15 mg/dL (29-60) L 07/25/16 05:30 TSH 3rd Generation 0.68 mIU/mL (0.46-4.68) 07/25/16 11:40 Blood Type A POSITIVE 07/25/16 05:30 Blood Type Confirm A POSITIVE 07/25/16 15:00 Antibody Screen Negative 07/25/16 05:30 BBK History Checked No verified bt 07/25/16 05:30 - Constitutional Appears: Well, No Acute Distress - Head Exam Head Exam: NORMAL INSPECTION, NORMOCEPHALIC - Eye Exam Eye Exam: Normal appearance, PERRL - ENT Exam ENT Exam: Normal External Ear Exam - Neck Exam Neck Exam: Normal Inspection - Respiratory Exam Respiratory Exam: NORMAL BREATHING PATTERN - Cardiovascular Exam Cardiovascular Exam: absent: JVD - GI/Abdominal Exam GI & Abdominal Exam: absent: Distended - Rectal Exam Rectal Exam: Deferred - Extremities Exam Extremities Exam: Normal Inspection - Back Exam Back Exam: NORMAL INSPECTION - Neurological Exam Neurological Exam: Alert, Oriented x3 - Psychiatric Exam Psychiatric exam: Normal Affect, Normal Mood - Skin Skin Exam: Normal Color Assessment and Plan - Assessment and Plan (Free Text) Assessment: Headache. Resolved left arm weakness. Asthma. Obesity. Migraines history. GERD. Plan: Motrin 600 mg PO stat. If headache is not relieved, will get CT head. Continue present management. PMD made aware.
[2016-07-25 23:50] VITALS: RESP 20; O2SAT 97
[2016-07-26 06:28] LABS: ADD MANUAL DIFF? NO
[2016-07-26 06:32] LABS: BASO # 0.01 K/mm3 (0.0-2.0); BASO % 0.1 % (0.0-3.0); EOS # 0.5 (0.0-0.7); EOS % 6.7 % (1.5-5.0); GRAN # 4.39 (1.4-6.5); GRAN % 56.9 % (50.0-68.0); HEMATOCRIT 39.8 % (36.0-48.0); LYMPH # 2.1 (1.2-3.4); LYMPH % 26.7 % (22.0-35.0); MEAN CELL VOLUME 87.3 fL (80.0-105.0); MEAN CORPUSCULAR HEMOGLOBIN 29.2 pg (25.0-35.0); MEAN CORPUSCULAR HGB CONC 33.4 g/dl (31.0-37.0); MONO # 0.7 (0.1-0.6); MONO % 9.6 % (1.0-6.0); PLATELET COUNT 206 10^3/uL (120.0-450.0); RED CELL DISTRIBUTION WIDTH 13.2 % (11.5-14.5); WHITE BLOOD COUNT 7.7 10^3/ul (4.5-11.0)
[2016-07-26 06:40] LABS: ALB/GLOB RATIO 1.1 (1.1-1.8); ALKALINE PHOSPHATASE 37 U/L (38-133); ALT/SGPT 34 U/L (7-56); AST/SGOT 19 U/L (15-39); BILIRUBIN,TOTAL 0.7 mg/dL (0.2-1.3); BLOOD UREA NITROGEN 13 mg/dL (7-21); CALCIUM 9.1 mg/dL (8.4-10.5); CARBON DIOXIDE 25 mmol/L (21-33); CHLORIDE 105 mmol/L (98-107); GFR AFRICAN-AMERICAN > 60; GLUCOSE,RANDOM 97 mg/dL (70-110); POTASSIUM 4.3 mmol/L (3.6-5.0); SODIUM 137 mmol/L (132-148); TOTAL PROTEIN 7.1 g/dL (5.8-8.3)
--- NOTE | 2016-07-26 09:00 | CP.PCM.CON ---
<Rahat Camacho - Last Filed: 07/26/16 08:55> History of Present Illness - History of Present Illness History of Present Illness: PGY4 GI Fellow Consult Note Patient is a 46yo female with PMHx significant for hypertriglyceridemia, migraines and asthma who presented to the ED with left sided weakness. evening at around midnight the patient awoke and noted left arm weakness and left leg discomfort. Patient awaited reoslution of these symptoms at home without use of any OTC medications, however when she developed tongue numbness she came to the ED for further evaluation. On routine work up she was noted to have elevated triglycerides at 1433 and had complained to the primary service of abdominal pain, thus we were we consulted. Patient states that she has suffered with reflux on and off for several years. Previously she had used PPI for very brief period and stopped use with resolution of symptoms. Admits to one dark stool earlier this month and recurrence of epigastric burning pain, nocturnal nausea and occasional bloating in the weeks preceding admission. Currently, she is asymptomatic and her presenting symptoms have improved. PMHx: See HPI PSHx: Denies FHx: Hypertriglyceridemia, DM Social: Denies tobacco, illicit drug use; occasional EtOH use socially Endo: Denies Review of Systems - Constitutional Constitutional: Weight Gain. absent: Anorexia, Chills, Fever, Weight Loss - EENT Eyes: absent: Change in Vision Nose/Mouth/Throat: absent: Sore Throat - Cardiovascular Cardiovascular: absent: Chest Pain, Dyspnea, Edema - Respiratory Respiratory: absent: Cough, Dyspnea, Excessive Mucous Production - Gastrointestinal Gastrointestinal: Dyspepsia, Melena, Nausea. absent: Abdominal Pain, Bloating, Constipation, Cramping, Diarrhea, Dysphagia, Hematemesis, Hematochezia, Odynophagia, Vomiting - Genitourinary Genitourinary: absent: Dysuria, Urinary Frequency, Urinary Urgency - Musculoskeletal Musculoskeletal: absent: Back Pain, Neck Pain - Integumentary Integumentary: absent: New Lesions, Rash - Neurological Neurological: Numbness, Focal Weakness, Headaches. absent: Dizziness - Psychiatric Psychiatric: absent: Anxiety, Depression - Endocrine Endocrine: absent: Polydipsia, Polyphagia, Polyuria - Hematologic/Lymphatic Hematologic: absent: Easy Bleeding, Easy Bruising, Lymphadenopathy Past Patient History - Past Social History Smoking Status: Never Smoked - CARDIAC Hx Cardiac Disorders: Yes Other/Comment: high triglycerides diet controlled - PULMONARY Hx Asthma: Yes (yes; intermittent) - NEUROLOGICAL Hx Neurological Disorder: Yes Hx Migraine: Yes - HEENT Hx HEENT Problems: No (wears glasses) - RENAL Hx Chronic Kidney Disease: No - ENDOCRINE/METABOLIC Hx Endocrine Disorders: No - HEMATOLOGICAL/ONCOLOGICAL Hx Blood Disorders: No - INTEGUMENTARY Hx Dermatological Problems: No - MUSCULOSKELETAL/RHEUMATOLOGICAL Hx Falls: No - GASTROINTESTINAL Hx Gastrointestinal Disorders: Yes Hx Gastroesophageal Reflux: Yes Other/Comment: saw on wednesday07/21/16 for heartburn " told me to take tums " if i get heartburn - GENITOURINARY/GYNECOLOGICAL Hx Genitourinary Disorders: Yes Hx Urinary Tract Infection: Yes - PSYCHIATRIC Hx Substance Use: No - SURGICAL HISTORY Hx Surgeries: Yes Meds Allergies/Adverse Reactions: Allergies Allergy/AdvReac Type Severity Reaction Status Date / Time Iodine and Iodide Containing Allergy RASH Verified 06/08/16 23:01 Produc diphenhydramine AdvReac DIZZINESS Verified 06/08/16 23:01 [From Benadryl] - Medications Medications: Current Medications Amlodipine Besylate (Norvasc) 2.5 mg PO DAILY [facility] Last Admin: 07/25/16 11:00 Dose: 2.5 mg Aspirin (Aspirin Chewable) 81 mg PO DAILY [facility] Fenofibrate (Tricor) 145 mg PO DAILY [facility] Last Admin: 07/25/16 11:00 Dose: 145 mg Sodium Chloride (Sodium Chloride 0.45%) 1,000 mls @ 60 mls/hr IV .[id number] [facility] Last Admin: 07/25/16 11:03 Dose: 60 mls/hr Ondansetron HCl (Zofran Inj) 4 mg IVP Q6H PRN PRN Reason: Nausea/Vomiting Last Admin: 07/25/16 15:16 Dose: 4 mg Physical Exam - Constitutional Appears: Non-toxic, No Acute Distress - Eye Exam Eye Exam: EOMI, PERRL - ENT Exam ENT Exam: Mucous Membranes Moist - Respiratory Exam Respiratory Exam: Clear to Auscultation Bilateral. absent: Rales, Rhonchi, Wheezes - Cardiovascular Exam Cardiovascular Exam: RRR, +S1, +S2 - GI/Abdominal Exam GI & Abdominal Exam: Normal Bowel Sounds, Soft. absent: Distended, Firm, Guarding, Organomegaly, Rigid, Tenderness - Extremities Exam Extremities exam: Positive for: normal inspection. Negative for: pedal edema - Neurological Exam Neurological exam: Alert, Oriented x3 - Psychiatric Exam Psychiatric exam: Normal Affect, Normal Mood - Skin Skin Exam: Dry, Warm Results - Vital Signs Recent Vital Signs: Last Vital Signs Temp 98.4 F 07/25/16 23:49 Pulse 67 07/26/16 02:00 Resp 20 07/25/16 23:49 BP 117/77 07/25/16 23:49 Pulse Ox 97 07/25/16 23:49 - Labs Result Diagrams: 07/26/16 06:20 07/26/16 06:20 Labs: Laboratory Results - last 24 hr 07/25/16 07/25/16 07/25/16 11:40 15:00 17:58 WBC RBC Hgb Hct MCV MCH MCHC RDW Plt Count MPV Gran % Lymph % (Auto) [place] % (Auto) Eos % (Auto) Baso % (Auto) Gran # Lymph # [place] # Eos # Baso # Sodium Potassium Chloride Carbon Dioxide Anion Gap BUN Creatinine Est GFR ( Amer) Est GFR (Non-Af Amer) POC Glucose (mg/dL) 149 H Random Glucose Calcium Total Bilirubin AST ALT Alkaline Phosphatase Total Protein Albumin Globulin Albumin/Globulin Ratio TSH 3rd Generation 0.68 Blood Type Confirm A POSITIVE 07/25/16 07/26/16 07/26/16 21:38 06:20 06:20 WBC 7.7 D RBC 4.56 Hgb 13.3 Hct 39.8 MCV 87.3 MCH 29.2 MCHC 33.4 RDW 13.2 Plt Count 206 MPV 9.0 Gran % 56.9 Lymph % (Auto) 26.7 [place] % (Auto) 9.6 H Eos % (Auto) 6.7 H Baso % (Auto) 0.1 Gran # 4.39 Lymph # 2.1 [place] # 0.7 H Eos # 0.5 Baso # 0.01 Sodium 137 Potassium 4.3 Chloride 105 Carbon Dioxide 25 Anion Gap 11 BUN 13 Creatinine 0.8 Est GFR ( Amer) > 60 Est GFR (Non-Af Amer) > 60 POC Glucose (mg/dL) 93 Random Glucose 97 Calcium 9.1 Total Bilirubin 0.7 AST 19 ALT 34 Alkaline Phosphatase 37 L Total Protein 7.1 Albumin 3.7 Globulin 3.4 Albumin/Globulin Ratio 1.1 TSH 3rd Generation Blood Type Confirm 07/26/16 07:24 WBC RBC Hgb Hct MCV MCH MCHC RDW Plt Count MPV Gran % Lymph % (Auto) [place] % (Auto) Eos % (Auto) Baso % (Auto) Gran # Lymph # [place] # Eos # Baso # Sodium Potassium Chloride Carbon Dioxide Anion Gap BUN Creatinine Est GFR ( Amer) Est GFR (Non-Af Amer) POC Glucose (mg/dL) 103 Random Glucose Calcium Total Bilirubin AST ALT Alkaline Phosphatase Total Protein Albumin Globulin Albumin/Globulin Ratio TSH 3rd Generation Blood Type Confirm Assessment & Plan - Assessment and Plan (Free Text) Assessment: Patient is a 46yo female with PMHx significant for hypertriglyceridemia, migraines and asthma who presented to the ED with left sided weakness. -Complex migraine, resolved -Hypertriglyceridemia -Abdominal pain, resolved Plan: -Agree with current management and initiation of TG lowering agent -Consider repeating labs as this is a rather precipitous rise in TGs in short time frame -May benefit from endocrinology consult given family history -No evidence of pancreatitis at this time as a result of hyperTG -Recommend outpatient follow up for dyspepsia if persistent -Start PPI therapy with Protonix 40mg PO QAMAC and continue for 6 weeks - Date & Time Date: 07/26/16 Time: 07:30 <Jorge Luis Jason - Last Filed: 07/26/16 09:51> Meds - Medications Medications: Current Medications Amlodipine Besylate (Norvasc) 2.5 mg PO DAILY [facility] Last Admin: 07/26/16 09:33 Dose: 2.5 mg Aspirin (Aspirin Chewable) 81 mg PO DAILY [facility] Last Admin: 07/26/16 09:33 Dose: 81 mg Fenofibrate (Tricor) 145 mg PO DAILY [facility] Last Admin: 07/26/16 09:33 Dose: 145 mg Sodium Chloride (Sodium Chloride 0.45%) 1,000 mls @ 60 mls/hr IV .[id number] [facility] Last Admin: 07/25/16 11:03 Dose: 60 mls/hr Ondansetron HCl (Zofran Inj) 4 mg IVP Q6H PRN PRN Reason: Nausea/Vomiting Last Admin: 07/25/16 15:16 Dose: 4 mg Pantoprazole Sodium (Protonix Ec Tab) 40 mg PO 0600 [facility] Stop: 09/07/16 05:00 Results - Vital Signs Recent Vital Signs: Last Vital Signs Temp 98.4 F 07/25/16 23:49 Pulse 67 07/26/16 02:00 Resp 20 07/25/16 23:49 BP 114/78 07/26/16 09:33 Pulse Ox 97 07/25/16 23:49 - Labs Result Diagrams: 07/26/16 06:20 07/26/16 06:20 Labs: Laboratory Results - last 24 hr 07/25/16 07/25/16 07/25/16 11:40 15:00 17:58 WBC RBC Hgb Hct MCV MCH MCHC RDW Plt Count MPV Gran % Lymph % (Auto) [place] % (Auto) Eos % (Auto) Baso % (Auto) Gran # Lymph # [place] # Eos # Baso # Sodium Potassium Chloride Carbon Dioxide Anion Gap BUN Creatinine Est GFR ( Amer) Est GFR (Non-Af Amer) POC Glucose (mg/dL) 149 H Random Glucose Calcium Total Bilirubin AST ALT Alkaline Phosphatase Total Protein Albumin Globulin Albumin/Globulin Ratio TSH 3rd Generation 0.68 Blood Type Confirm A POSITIVE 07/25/16 07/26/16 07/26/16 21:38 06:20 06:20 WBC 7.7 D RBC 4.56 Hgb 13.3 Hct 39.8 MCV 87.3 MCH 29.2 MCHC 33.4 RDW 13.2 Plt Count 206 MPV 9.0 Gran % 56.9 Lymph % (Auto) 26.7 [place] % (Auto) 9.6 H Eos % (Auto) 6.7 H Baso % (Auto) 0.1 Gran # 4.39 Lymph # 2.1 [place] # 0.7 H Eos # 0.5 Baso # 0.01 Sodium 137 Potassium 4.3 Chloride 105 Carbon Dioxide 25 Anion Gap 11 BUN 13 Creatinine 0.8 Est GFR ( Amer) > 60 Est GFR (Non-Af Amer) > 60 POC Glucose (mg/dL) 93 Random Glucose 97 Calcium 9.1 Total Bilirubin 0.7 AST 19 ALT 34 Alkaline Phosphatase 37 L Total Protein 7.1 Albumin 3.7 Globulin 3.4 Albumin/Globulin Ratio 1.1 TSH 3rd Generation Blood Type Confirm 07/26/16 07:24 WBC RBC Hgb Hct MCV MCH MCHC RDW Plt Count MPV Gran % Lymph % (Auto) [place] % (Auto) Eos % (Auto) Baso % (Auto) Gran # Lymph # [place] # Eos # Baso # Sodium Potassium Chloride Carbon Dioxide Anion Gap BUN Creatinine Est GFR ( Amer) Est GFR (Non-Af Amer) POC Glucose (mg/dL) 103 Random Glucose Calcium Total Bilirubin AST ALT Alkaline Phosphatase Total Protein Albumin Globulin Albumin/Globulin Ratio TSH 3rd Generation Blood Type Confirm Attending/Attestation - Attestation I have personally seen and examined this patient.: Yes I have fully participated in the care of the patient.: Yes I have reviewed all pertinent clinical information: Yes Notes (Text): 07/26/16 09:49 46 year old female with h/o hypertriglyceridemia, migraines and asthma who presented to the ED with left sided weakness, also with abdominal pain and GERD. 1. Abdominal pain 2. GERD Plan: -transient abdominal pain associtaed with hypertriglyceridemia -no evidence of acute pancreatitis -abdominal pain is resolved -she has chronic acid reflux symptoms -recommend protonix 40 mg daily -recommend endocrine evaluation for high triglycerides and management -consider outpatient endoscopy
--- NOTE | 2016-07-26 12:35 | CT ---
CT chest without IV contrast Indication: Evaluate for possible pulmonary nodule on chest x-ray. Technique: Contiguous axial images were obtained through the chest without intravenous contrast enhancement. Sagittal and coronal reconstructions were generated and reviewed. This CT exam was performed using 1 or more of the falling dose reduction techniques: Automated exposure control, adjustment of the MAA and/or kV according to patient size, and/or use of iterative reconstruction technique. Radiation dose (DLP): 477.35 MGy-cm. Comparison: Chest x-ray performed 07/25/16 Findings: Visualized portions of the inferior thyroid gland appear unremarkable. The unenhanced mediastinal and hilar vascular structures appear grossly unremarkable. The heart appears within normal limits of size. No focal consolidation. No pleural effusion. No pneumothorax. No suspicious pulmonary nodules measuring greater than 5 mm. Limited visualization of the noncontrast upper abdomen appears grossly unremarkable. No acute osseous abnormality is detected. Impression: No acute findings. No suspicious pulmonary nodules identified.
[2016-07-26 12:47] VITALS: BP 119/85; PULSE 67; TEMP 97.7
--- NOTE | 2016-07-26 14:16 | PN ---
DATE: 07/26/2016 The patient denies any left arm numbness or weakness. She denies any headache or blurry vision. PHYSICAL EXAMINATION: VITAL SIGNS: Blood pressure 119/85, heart rate 69, temperature 97.7, respirations 20. HEENT: Normocephalic. NECK: No JVD. CHEST: Clear. HEART: S1, S2 regular. EXTREMITIES: No edema. LABORATORIES: Hemoglobin and hematocrit 13.3 and 39.8, white count and platelet count 7.7 and 206,00 0. Today's SMA-7: Sodium 137, potassium 4.3, chloride 105, CO2 of 25, glucose 97, BUN 15, creatinin e 0.8. Brain MRI was performed, but the report is still pending. Carotid Doppler revealed bilateral 20% to 39% proximal internal carotid artery stenosis, antegrade flow in both vertebral arteries. C hest CT scan without contrast: No acute findings. No suspicious pulmonary nodules. ASSESSMENT: 1. Rule out transient ischemic attack. 2. Uncontrolled hypertension. 3. Hyperlipidemia. RECOMMENDATIONS: Continue aspirin 81 mg once a day, Norvasc 2.5 mg once a day, Protonix at 40 mg onc e a day, Tricor at 145 mg once a day. I will follow brain MRI results. Igor Bernal MD cc: [id number] TT: 07/26/2016 14:15:51 Confirmation # [id number] Dictation # [id number]
--- NOTE | 2016-07-26 14:19 | MRI ---
PROCEDURE: MRI BRAIN WITHOUT CONTRAST HISTORY: left-sided weakness COMPARISON: Noncontrast head CT from 07/25/2016 TECHNIQUE: Multiplanar, multisequence MR images of the brain were obtained without intravenous contrast enhancement. FINDINGS: HEMORRHAGE: None DWI: No evidence of an acute or early subacute infarction. BRAIN PARENCHYMA: Coulter-white matter differentiation is preserved. There is no mass, mass effect or abnormal extra-axial fluid collection. The midline sagittal structures are normal. VENTRICLES: The ventricles are normal in size, shape and configuration. CRANIUM: There is normal bone marrow signal pattern. ORBITS: Grossly unremarkable. PARANASAL SINUSES/MASTOIDS: Predominantly clear. VASCULAR SYSTEM: There are normal signal voids in the larger intracranial arteries. OTHER FINDINGS: None. IMPRESSION: No acute intracranial abnormality. Specifically, no evidence of acute infarction. A preliminary report was provided by [employer] [facility].
--- NOTE | 2016-07-26 19:06 | DS ---
I saw her this morning resting in bed. She is still having some numbness here and there in her hands that move around. Otherwise, she is doing well. No headache, no dizziness. She is walking. No ch bárbara in vision. She is eating and the numbness is much better, there is a little bit left in her pena ds. PHYSICAL EXAMINATION: VITAL SIGNS: She has 98.4 temp, 77 pulse, 117/77 blood pressure, 20 respiratory rate, 97% O2 sat on room air. HEENT: Head is atraumatic, normocephalic. Extraocular muscles are intact. Throat is moist. NECK: Supple. NEUROLOGIC: Tongue midline. Cranial nerves II-XII grossly intact. She can smile. She can frown. She can close her eyes tight. She can raise her arms over her head. She has full strength in both a lois and hands. She can feel everything I am touching, just every now and then they feel numb she tel ls me, none at this time, of course; of course, I am there examining her. HEART: Regular rate. LUNGS: Clear to auscultation. ABDOMEN: Soft. EXTREMITIES: No edema. MEDICATIONS: She is currently on aspirin, Norvasc, Protonix, IV fluids, Tricor and Zofran. LABORATORY DATA: She has a 7.7 white count, 13.3 hemoglobin, 39.8 hematocrit with 206 platelets. Donna schulte has a 137 sodium, potassium 4.3, BUN 13, creatinine 0.8, GFR is greater than 60, sugar is 97, calci um is 9.1, AST is 19, ALT is 34, alk phos is 77, total protein 7.1, albumin 3.7, globulin 3.4. TSH i s 0.68. My only issue with her was her triglycerides that were 1433, which is abel high, which can lead to estrada creatitis; I don't think she has that. I called in GI and they said to continue with triglyceride lo wering agent. I put on Tricor. I will follow her up as an outpatient. She might need an endocrinol ogist as an outpatient; we are not sure why that is elevated. I will put her on a low sugar, low car bohydrate, low-triglyceride diet until we can get the answer. The MRI of the brain, I discussed with the radiologist, and was normal and that is why I am going to discharge her today. Bilateral 20% to 39% proximal ICA stenosis. So I will discharge her to follow up as an outpatient with the neurologi st, with an disc pad plate filler and her primary care doctor. The patient had weakness, which is resolved ; high triglycerides and hypertension, I will put her on Norvasc. Ming Chambers DO cc: [id number] TT: 07/26/2016 19:05:25 dn
[2016-07-27] MEDS ORDERED: Pantoprazole 40 mg EC Tab PO SCH (06:00)
--- NOTE | 2016-07-27 23:05 | CARD ---
APPROVED REPORT EXAM: Two-dimensional and M-mode echocardiogram with Doppler and color Doppler. Surgery/Intervention Left side weakness 2D DIMENSIONS Left Atrium (2D)3.0 (1.6-4.0cm)IVSd0.8 (0.7-1.1cm) Aortic Root (2D)2.4 (2.0-3.7cm)LVDd3.7 (3.9-5.9cm) PWd0.9 (0.7-1.1cm)LVDs1.9 (2.5-4.0cm) FS (%) 48.5 %LVEF (%)80.6 (>50%) M-Mode DIMENSIONS Aortic Cusp Exc.1.90 (1.5-2.0cm) Aortic Valve AoV Peak Mpdbnrvd860.0cm/Inna Peak GR.12mmHg Mitral Valve MV E Uwherlms45.5cm/sMV A Asoobelm98.9cm/sE/A ratio0.9 TDI Lateral E' Peak V11.80cm/sMedial E' Peak V4.97cm/sE/Lateral E'6.7 E/Medial E'16.0 Pulmonary Valve PV Peak Izqsosdr897.0cm/sPV Peak Grad.6mmHg Tricuspid Valve TR Peak [id number]/sRAP [id number] Peak Gr.6mmHg [id number] LEFT VENTRICLE The left ventricle is normal size. There is normal left ventricular wall thickness. The left ventricular function is normal. The left ventricular ejection fraction is within the normal range. There is normal LV segmental wall motion. Transmitral Doppler flow pattern is Grade I-abnormal relaxation pattern. RIGHT VENTRICLE The right ventricle is normal size. There is normal right ventricular wall thickness. The right ventricular systolic function is normal. ATRIA The left atrium size is normal. The right atrium size is normal. AORTIC VALVE The aortic valve is normal in structure. No aortic regurgitation is present. MITRAL VALVE The mitral valve is normal in structure. There is no mitral valve regurgitation noted. TRICUSPID VALVE The tricuspid valve is normal in structure. There is no tricuspid valve regurgitation noted. GREAT VESSELS The aortic root is normal in size. <Conclusion> The left ventricle is normal size. There is normal left ventricular wall thickness. The left ventricular function is normal. The left ventricular ejection fraction is within the normal range. There is normal LV segmental wall motion. Transmitral Doppler flow pattern is Grade I-abnormal relaxation pattern. A very small PFO is a possibility
== END 2016-07-26 15:17 | disposition home or self-care (01) ==
LOC: ED 05:19 → ERH 07:15 → 2RSO 08:40
PROVIDERS: ADMIT Family Medicine; ATTEND Family Medicine
DX: R53.1 Weakness (principal); G43.809 Other migraine, not intractable, without status migrainosus; I65.23 Occlusion and stenosis of bilateral carotid arteries; J45.909 Unspecified asthma, uncomplicated; K21.9 Gastro-esophageal reflux disease without esophagitis; I10 Essential (primary) hypertension; E78.1 Pure hyperglyceridemia; E78.5 Hyperlipidemia, unspecified; R20.0 Anesthesia of skin; E66.9 Obesity, unspecified; Z87.440 Personal history of urinary (tract) infections
CPT/HCPCS: 36415; 70450; 70551; 71010; 71250; 80053; 80061; 82948; 83036; 84443; 84484; 85025; 86850; 86900; 93005; 93306; 93880; 99285; G0378; J2405; J7030

== ENCOUNTER 2016-08-13 11:47 | Emergency (ER) | payer BC ==
[2016-08-13 11:47] VITALS: BMI 30.2
[2016-08-13 12:05] VITALS: TEMP 98.7; O2SAT 99
--- NOTE | 2016-08-13 12:19 | ED PDOC ---
Arrival/HPI - General Chief Complaint: Medical Clearance Time Seen by Provider: 08/13/16 12:02 Historian: Patient - History of Present Illness Narrative History of Present Illness (Text): 08/13/16 12:19 A 46 year old female presents to the emergency department complaining of dizziness and lightheadedness since this morning. Patient reports after she woke up today she noticed her stove was on. She believes it could have possibly been left on over night. Patient is concerned for potential carbon monoxide poisoning. She denies any fire or visible smoke. Patient denies any fever, chills, nausea, vomiting, diarrhea, abdominal pain, urinary symptoms, chest pain , palpitations, shortness of breath, cough or any other complaints. 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) Symptom Course: Unchanged Quality: Other Context: Home Past Medical History - Provider Review Nursing Documentation Reviewed: Yes - Infectious Disease Hx of Infectious Diseases: None - Cardiac Hx Cardiac Disorders: Yes Other/Comment: high triglycerides diet controlled - Pulmonary Hx Asthma: Yes (yes; intermittent) - Neurological Hx Neurological Disorder: Yes Hx Migraine: Yes - HEENT Hx HEENT Disorder: No (wears glasses) - Renal Hx Renal Disorder: No - Endocrine/Metabolic Hx Endocrine Disorders: No - Hematological/Oncological Hx Blood Disorders: No - Integumentary Hx Dermatological Disorder: No - Musculoskeletal/Rheumatological Hx Falls: No - Gastrointestinal Hx Gastrointestinal Disorders: Yes Hx Gastroesophageal Reflux: Yes Other/Comment: saw on wednesday07/21/16 for heartburn " told me to take tums " if i get heartburn - Genitourinary/Gynecological Hx Genitourinary Disorders: Yes Hx Urinary Tract Infection: Yes - Psychiatric Hx Psychophysiologic Disorder: No Hx Substance Use: No Family/Social History - Physician Review Nursing Documentation Reviewed: Yes Family/Social History: No Known Family HX Smoking Status: Never Smoked Hx Alcohol Use: Yes (social) Hx Substance Use: No Allergies/Home Meds Allergies/Adverse Reactions: Allergies Iodine and Iodide Containing Produc Allergy (Verified 08/13/16 12:00) RASH diphenhydramine [From Benadryl] Adverse Reaction (Verified 08/13/16 12:00) DIZZINESS Home Medications: Home Meds Medication Instructions Recorded Confirmed No Known Home Med 08/13/16 08/13/16 Review of Systems - Review of Systems Constitutional: absent: Fatigue, Fevers, Night Sweats Eyes: absent: Vision Changes, Eye Pain ENT: absent: Hearing Changes, Sore Throat Respiratory: absent: SOB, Cough Cardiovascular: absent: Chest Pain, Calf Pain, GRIMES Gastrointestinal: absent: Abdominal Pain, Diarrhea, Nausea, Vomiting Genitourinary Female: absent: Dysuria, Frequency, Hematuria, Urine Output Changes Musculoskeletal: absent: Back Pain, Neck Pain Skin: absent: Rash Neurological: Dizziness (/lightheadedness). absent: Headache, Gait Changes Endocrine: absent: Polyuria Hemo/Lymphatic: absent: Easy Bleeding Physical Exam - Physical Exam Narrative Physical Exam (Text): Head: Atraumatic. Normocephalic. Eyes: PERRL. EOMI. Conjunctivae are not pale. Visual acuity and huff intact. ENT: Mucous membranes are moist and intact. Oropharynx is clear and symmetric. No fraser red spot. Neck: Supple. Full ROM. No JVD. No lymphadenopathy. Cardiovascular: Regular rate. Regular rhythm. No murmurs, rubs, or gallops. Distal pulses are 2+ and symmetric. Pulmonary/Chest: No evidence of respiratory distress. Clear to auscultation bilaterally. No wheezing, rales or rhonchi. Abdominal: Soft and non-distended. There is no tenderness. No rebound, guarding, or rigidity. No organomegaly. Good bowel sounds. Back: No CVA tenderness. Extremities: No edema. No cyanosis. No clubbing. Full range of motion in all extremities. No calf tenderness. Skin: Skin is warm and dry. No petechiae. No purpura. Neurological: Alert, awake, and oriented to person, place, time, and situation. Normal speech. Motor and sensory intact. Psychiatric: Good eye contact. Normal interaction, affect, and behavior. Mildly anxious. Vital Signs Reviewed: Yes Vital Signs Temp Pulse Resp BP Pulse Ox 08/13/16 15:34 88 18 139/76 99 08/13/16 12:01 98.7 F 81 16 135/83 99 08/13/16 11:47 98.4 F 72 18 142/88 100 Temperature: Afebrile Blood Pressure: Normal Pulse: Regular Respiratory Rate: Normal Appearance: Positive for: Well-Appearing, Non-Toxic, Comfortable Pain Distress: None Mental Status: Positive for: Alert and Oriented X 3 Medical Decision Making ED Course and Treatment: 08/13/16 12:19 Impression: A 46 year old female with dizziness and lightheadedness. Patient concerned for potential carbon monoxide poisoning. Physical exam unremarkable. Plan: -- Blood gas -- Reassess and disposition Prior Visits: Notes and results from previous visits were reviewed. Patient had an MRI done on , which showed: IMPRESSION: No acute intracranial abnormality. Specifically, no evidence of acute infarction. Patient was seen in the emergency room on 06/08/16 and hospitalized for chest pain and palpitations. Patient had a full cardiac work up done, which showed normal results. Progress Notes: Patient states that this morning she noted that gas was on in her house. She states she smelled some gas, later felt some dizziness. There was no flame or chemical exposure. On exam she is neurologically intact without chest pain or sob. Patient placed on oxygen, VBG obtained, carbon monoxide level is not signficant , and on re-exam patient is asymptomatic. I stressed to patient that she must have living situation and smoke/CO evaluated. Asymptomatic on discharge. 08/13/16 19:52 - Lab Interpretations Lab Results: Lab Results 08/13/16 13:06: pO2 28 L, ABG Carboxyhemoglobin 1.9 H, POC ABG HHb (Measured) 37.0 H, ABG Methemoglobin 0.6, VBG pH 7.43, VBG pCO2 40.0, VBG HCO3 26.5, VBG O2 Sat (Calc) 62.1, VBG Base Excess 2.0, VBG Hgb O2 Saturation 60.6 L, Hemoglobin 14.2 - Scribe Statement The provider has reviewed the documentation as recorded by the Flora Mckay Provider Scribe Attestation: All medical record entries made by the Scribe were at my direction and personally dictated by me. I have reviewed the chart and agree that the record accurately reflects my personal performance of the history, physical exam, medical decision making, and the department course for this patient. I have also personally directed, reviewed, and agree with the discharge instructions and disposition. Disposition/Present on Arrival - Present on Arrival Any Indicators Present on Arrival: No History of DVT/PE: No History of Uncontrolled Diabetes: No Urinary Catheter: No History of Decub. Ulcer: No History Surgical Site Infection Following: None - Disposition Have Diagnosis and Disposition been Completed?: Yes Diagnosis: Dizziness, Inhalation of noxious fumes Disposition: HOME/ ROUTINE Disposition Time: 14:30 Patient Plan: Discharge Condition: GOOD Additional Instructions: For any headaches, chest pain, shortness of breath, dizziness, abdominal pain, unsteadiness, persistent or worsening of any symptoms, get rechecked. Follow-up with your primary care doctor in 1-2 days. Have your household checked for carbon monoxide levels and gas leaks.
[2016-08-13 13:12] LABS: VENOUS BLOOD GAS PO2 28 mm/Hg (30-55); VENOUS BLOOD PH 7.43 (7.32-7.43)
[2016-08-13 15:35] VITALS: BP 139/76; PULSE 88; RESP 18
== END 2016-08-13 15:37 | disposition home or self-care (01) ==
LOC: ED 11:47
DX: T59.891A Toxic effect of other specified gases, fumes and vapors, accidental (unintentional), initial encounter (principal); R42 Dizziness and giddiness; Y92.008 Other place in unspecified non-institutional (private) residence as the place of occurrence of the external cause

== ENCOUNTER 2016-09-30 08:50 | Emergency (ER) | payer BC ==
--- NOTE | 2016-09-30 09:09 | ED PDOC ---
Arrival/HPI - General Historian: Patient - History of Present Illness Time/Duration: Other (see hpi) Quality: Aching, Other (see hpi) Context: Home - General Chief Complaint: Chest Pain Time Seen by Provider: 09/30/16 09:09 - History of Present Illness Narrative History of Present Illness (Text): 09/30/16 09:09 A 46 year old female, whose past medical history includes GERD, asthma and migraines, presents to the emergency department complaining of chest pain x 2 hours. Pain is described as "squeezing", sub-sternal area. Pain is constant, radiates to both shoulder. Pain is sometimes aggravated by movement. Denies cough, sob, abdominal pain, dizziness, or abnormal gait. PERC negative for PE (Camilo Fernandes) Past Medical History - Provider Review Nursing Documentation Reviewed: Yes - Infectious Disease Hx of Infectious Diseases: None - Cardiac Hx Cardiac Disorders: Yes Other/Comment: high triglycerides diet controlled. Heart monitor in past - Pulmonary Hx Respiratory Disorders: Yes Hx Asthma: Yes (yes; intermittent) - Neurological Hx Neurological Disorder: Yes Hx Migraine: Yes (aura) - HEENT Hx HEENT Disorder: Yes (wears glasses) - Renal Hx Renal Disorder: No - Endocrine/Metabolic Hx Endocrine Disorders: No - Hematological/Oncological Hx Blood Disorders: No - Integumentary Hx Dermatological Disorder: No - Musculoskeletal/Rheumatological Hx Falls: No - Gastrointestinal Hx Gastrointestinal Disorders: Yes Hx Gastroesophageal Reflux: Yes - Genitourinary/Gynecological Hx Genitourinary Disorders: Yes Hx Urinary Tract Infection: Yes - Psychiatric Hx Psychophysiologic Disorder: No Hx Substance Use: No - Anesthesia Hx Anesthesia: No Family/Social History - Physician Review Nursing Documentation Reviewed: Yes Family/Social History: Diabetes, Other ((+) father had [place]) Smoking Status: Never Smoked Hx Alcohol Use: Yes (social) Frequency of alcohol use: Socially Hx Substance Use: No Allergies/Home Meds Allergies/Adverse Reactions: Allergies Iodine and Iodide Containing Produc Allergy (Verified 09/30/16 08:58) RASH diphenhydramine [From Benadryl] Adverse Reaction (Verified 09/30/16 08:58) DIZZINESS Review of Systems - Review of Systems Constitutional: Normal. absent: Fatigue, Weight Change, Fevers, Night Sweats Eyes: Normal ENT: Normal Respiratory: Normal. absent: SOB, Cough Cardiovascular: Chest Pain. absent: Palpitations, Edema, Calf Pain, GRIMES, Orthopnea, Syncope Gastrointestinal: Normal. absent: Abdominal Pain, Nausea, Vomiting Genitourinary Female: Normal. absent: Dysuria, Frequency, Hematuria Musculoskeletal: Other (see hpi) Skin: Normal. absent: Rash Neurological: Normal. absent: Headache, Dizziness, Focal Weakness, Gait Changes , Speech Changes, Facial Droop, Disequilibrium, Seizure Endocrine: Normal Hemo/Lymphatic: Normal Psychiatric: Normal Physical Exam Temperature: Afebrile Blood Pressure: Hypertensive Pulse: Regular Respiratory Rate: Normal Appearance: Positive for: Well-Appearing, Non-Toxic, Comfortable Pain Distress: None Mental Status: Positive for: Alert and Oriented X 3 - Systems Exam Head: Present: Atraumatic, Normocephalic Pupils: Present: PERRL Extroacular Muscles: Present: EOMI Conjunctiva: Present: Normal Mouth: Present: Moist Mucous Membranes Neck: Present: Normal Range of Motion Respiratory/Chest: Present: Clear to Auscultation, Good Air Exchange, Tender to Palpation (Mild tenderness on b/l anterior chest wall. No swelling, or ecchymosis). No: Respiratory Distress, Accessory Muscle Use, Wheezes, Retracting, Rhonchi Cardiovascular: Present: Regular Rate and Rhythm, Normal S1, S2. No: Murmurs Abdomen: Present: Normal Bowel Sounds. No: Tenderness, Distention, Peritoneal Signs Back: Present: Normal Inspection. No: CVA Tenderness Upper Extremity: Present: Normal Inspection, Normal ROM, NORMAL PULSES, Neurovascularly Intact, Capillary Refill < 2s. No: Cyanosis, Edema Lower Extremity: Present: Normal Inspection, NORMAL PULSES, Normal ROM, Neurovascularly Intact, Capillary Refill < 2 s. No: Edema Neurological: Present: GCS=15, CN II-XII Intact, Speech Normal Skin: Present: Warm, Dry, Normal Color. No: Rashes Psychiatric: Present: Alert, Oriented x 3, Normal Insight, Normal Concentration Vital Signs Temp Pulse Resp BP Pulse Ox 09/30/16 11:49 79 18 148/89 98 09/30/16 09:05 98.4 F 83 20 151/90 H 98 Medical Decision Making Re-evaluation Time: 13:28 Reassessment Condition: Re-examined, Improved - Lab Interpretations I have reviewed the lab results: Yes Interpretation: No clinic. lab abnormalty - EKG Interpretation Interpreted by ED Physician: Yes (NSR @ 81 bpm. Normal interval. No ST changes ) Type: 12 lead EKG Comparison: No previous EKG avail. ED Course and Treatment: 09/30/16 09:46 I was available for consultation during PA evaluation. The chart was reviewed by me, and I agree with disposition. The documented history was done by the physician jacquard loom heddles tier. The documented physical exam was done by the physician jacquard loom heddles tier. The documented procedures were done by the physician jacquard loom heddles tier. (Shelton Sanders) 09/30/16 13:24 This 46 yo female presents to this ED c/o b/l chest pain, and b/l shoulder pain. Patient stated she feels tightness on mid-sternal area. Patient was seen in this ED last month for same. Patient was evaluated by Dr. Santa Cardiology, who stated chest pain was muscular. During that admission, she had negative Troponin, and negative Echocardiogram. Today, during physical exam, patient had reproducible CP on palpation. Chest x -rays, labs were negative. A second Troponin was done 3 hours from 1st, which was negative. Patient feels well, and she wishes to be discharge home. Patient was recommended to f/u pmd, and Dr. Guy 09/30/16 13:32 (Camilo Fernandes) - Lab Interpretations Lab Results: 09/30/16 09:40 09/30/16 09:40 Lab Results 09/30/16 12:40: Troponin I < 0.01 09/30/16 09:45: Urine Color Yellow, Urine Appearance Clear, Urine pH 6.5, Ur Specific [place] 1.010, Urine Protein Negative, Urine Glucose (UA) Negative, Urine Ketones Negative, Urine Blood Trace-lysed H, Urine Nitrate Negative, Urine Bilirubin Negative, Urine Urobilinogen 0.2, Ur Leukocyte Esterase Negative , Urine RBC Negative, Urine WBC Negative, Ur Epithelial Cells 1 - 3, Urine Bacteria Trace, Urine HCG, Qual Negative 09/30/16 09:40: Sodium 139, Potassium 5.1 H, Chloride 105, Carbon Dioxide 21, Anion Gap 18, BUN 10, Creatinine 0.7, Est GFR ( Amer) > 60, Est GFR (Non- Af Amer) > 60, Random Glucose 99, Calcium 9.1, Magnesium 2.0, Total Bilirubin 0.8, AST 35, ALT 26, Alkaline Phosphatase 46, Lactate Dehydrogenase 760 H, Total Creatine Kinase 98, Troponin I < 0.01 D, Total Protein 7.5, Albumin 4.3, Globulin 3.1, Albumin/Globulin Ratio 1.4 09/30/16 09:40: WBC 9.7 D, RBC 4.54, Hgb 14.0, Hct 39.6, MCV 87.2, MCH 30.8, MCHC 35.4, RDW 12.9, Plt Count 259, MPV 9.9, Gran % 72.6 H, Lymph % (Auto) 19.1 L, [place] % (Auto) 4.4, Eos % (Auto) 3.7, Baso % (Auto) 0.2, Gran # 7.06 H, Lymph # 1.9, [place] # 0.4, Eos # 0.4, Baso # 0.02 09/30/16 09:36: Urine Opiates Screen Negative, Urine Methadone Screen Negative, Ur Barbiturates Screen Negative, Ur Phencyclidine Scrn Negative, Ur Amphetamines Screen Negative, U Benzodiazepines Scrn Negative, U Oth Cocaine Metabols Negative, U Cannabinoids Screen Negative - RAD Interpretation Narrative RAD Interpretations (Text): 09/30/16 11:18 Exam Date : 09/30/2016 09:57:46 ( Approved ) Study Comment : Sex / Age : F / 46Y Creator : Claire Vázquez V. Dictator : Claire Vázquez V. Reference Librarian : Manager Retail : Claire Vázquez V. Approver2 : Report Date : 09/30/2016 11:05:48 My Comment : HISTORY: CP COMPARISON: 07/25/2016 portable chest x-ray. CT chest report without contrast 07/26/2016 FINDINGS: LUNGS: No active pulmonary disease. PLEURA: No significant pleural effusion identified, no pneumothorax apparent. CARDIOVASCULAR: Normal. OSSEOUS STRUCTURES: Thoracic spondylosis VISUALIZED UPPER ABDOMEN: Normal. OTHER FINDINGS: None. IMPRESSION: No active disease. No interval pathology noted (Camilo Fernandes) Radiology Orders: 09/30/16 09:36 CHEST PORTABLE [RAD] Stat - Medication Orders Current Medication Orders: Discontinued Medications Aspirin (Aspirin) 325 mg PO STAT STA Stop: 09/30/16 09:37 Last Admin: 09/30/16 09:54 Dose: 325 mg Disposition/Present on Arrival - Present on Arrival Any Indicators Present on Arrival: No History of DVT/PE: No History of Uncontrolled Diabetes: No Urinary Catheter: No History of Decub. Ulcer: No History Surgical Site Infection Following: None - Disposition Have Diagnosis and Disposition been Completed?: Yes Disposition Time: 13:29 Patient Plan: Discharge - Disposition Diagnosis: Non-cardiac chest pain Disposition: HOME/ ROUTINE Patient Problems: Current Active Problems Problem Status Onset Non-cardiac chest pain Acute Condition: IMPROVED Discharge Instructions (ExitCare): Chest Wall Pain (ED) Additional Instructions: Call private doctor in 1-2 days for revaluation. Take medication as instructed with food. Return to emergency if symptoms worsen, shortness of breath, dizziness, or fever. Prescriptions: Famotidine [Pepcid] 40 mg PO DAILY #10 tablet Naproxen 500 mg PO BID PRN #14 tab PRN Reason: Pain, Severe (8-10) Sucralfate [Carafate] 1 gm PO DAILY #10 tab Referrals: PCP,JOSEPH [Primary Care Provider] - Follow up with primary Fritz Santa MD [Staff Provider] - Follow up with primary Forms: Ray[employer] (Swazi)
[2016-09-30 09:16] VITALS: TEMP 98.4; O2SAT 98; BMI 29.5
[2016-09-30 09:53] LABS: BASO # 0.02 K/mm3 (0.0-2.0); BASO % 0.2 % (0.0-3.0); EOS # 0.4 (0.0-0.7); EOS % 3.7 % (1.5-5.0); GRAN # 7.06 (1.4-6.5); GRAN % 72.6 % (50.0-68.0); HEMATOCRIT 39.6 % (36.0-48.0); LYMPH # 1.9 (1.2-3.4); LYMPH % 19.1 % (22.0-35.0); MEAN CELL VOLUME 87.2 fl (80.0-105.0); MEAN CORPUSCULAR HEMOGLOBIN 30.8 pg (25.0-35.0); MEAN CORPUSCULAR HGB CONC 35.4 g/dl (31.0-37.0); MEAN PLATELET VOLUME 9.9 fl (7.0-11.0); MONO # 0.4 (0.1-0.6); MONO % 4.4 % (1.0-6.0); RED CELL DISTRIBUTION WIDTH 12.9 % (11.5-14.5); WHITE BLOOD COUNT 9.7 10^3/ul (4.5-11.0)
[2016-09-30 10:00] LABS: PH,URINE 6.5 (4.7-8.0); URINE BILIRUBIN NEGATIVE (NEGATIVE); URINE BLOOD TRACE-LYSED (NEGATIVE); URINE GLUCOSE (UA) NEGATIVE (NEGATIVE); URINE KETONE NEGATIVE (NEGATIVE); URINE LEUKOCYTE ESTERASE NEGATIVE Leu/uL (NEGATIVE); URINE PROTEIN NEGATIVE mg/dL (<30 mg/dL); URINE UROBILINOGEN 0.2 E.U./dL (<1 E.U./dL)
[2016-09-30 10:01] LABS: ALB/GLOB RATIO 1.4 (1.1-1.8); ALKALINE PHOSPHATASE 46 U/L (38-133); ALT/SGPT 26 U/L (7-56); AST/SGOT 35 U/L (15-39); BILIRUBIN,TOTAL 0.8 mg/dL (0.2-1.3); BLOOD UREA NITROGEN 10 mg/dL (7-21); CALCIUM 9.1 mg/dL (8.4-10.5); CARBON DIOXIDE 21 mmol/L (21-33); CHLORIDE 105 mmol/L (98-107); GFR AFRICAN-AMERICAN > 60; GLUCOSE,RANDOM 99 mg/dL (70-110); SODIUM 139 mmol/L (132-148); TOTAL PROTEIN 7.5 g/dL (5.8-8.3)
[2016-09-30 10:01] LABS: URINE APPEARANCE CLEAR (CLEAR); URINE COLOR YELLOW (YELLOW)
[2016-09-30 10:12] LABS: URINE BACTERIA TRACE (NEG); URINE RBC NEGATIVE /hpf (0-2); URINE WBC NEGATIVE /hpf (0-6)
[2016-09-30 10:13] LABS: TROPONIN I < 0.01 ng/mL
[2016-09-30 10:17] LABS: POTASSIUM 5.1 mmol/L (3.6-5.0)
--- NOTE | 2016-09-30 11:07 | RAD ---
HISTORY: CP COMPARISON: 07/25/2016 portable chest x-ray. CT chest report without contrast 07/26/2016 FINDINGS: LUNGS: No active pulmonary disease. PLEURA: No significant pleural effusion identified, no pneumothorax apparent. CARDIOVASCULAR: Normal. OSSEOUS STRUCTURES: Thoracic spondylosis VISUALIZED UPPER ABDOMEN: Normal. OTHER FINDINGS: None. IMPRESSION: No active disease. No interval pathology noted
[2016-09-30 11:49] VITALS: RESP 18
[2016-09-30 13:39] VITALS: BP 145/79; PULSE 75
--- NOTE | 2016-09-30 17:06 | CARD ---
APPROVED REPORT EKG Measurement Heart [id number] <Conclusion> Normal sinus rhythm Normal ECG
== END 2016-09-30 14:34 | disposition home or self-care (01) ==
LOC: ED 08:50
DX: R07.89 Other chest pain (principal)
CPT/HCPCS: 71010; 80053; 81001; 82550; 83615; 83735; 84484; 84703; 85025; 87086; 93005; 99284; G0480

== ENCOUNTER 2016-12-25 00:19 | Emergency (ER) | payer BC ==
--- NOTE | 2016-12-25 00:33 | ED PDOC ---
Arrival/HPI - General Historian: Patient - History of Present Illness Time/Duration: Other (see hpi) Context: Home <Camilo Fernandes P - Last Filed: 12/25/16 02:15> <Raffy Grover P - Last Filed: 12/25/16 04:54> - General Chief Complaint: Chest Pain Time Seen by Provider: 12/25/16 00:25 - History of Present Illness Narrative History of Present Illness (Text): 12/25/16 00:32 This 46 yo female with pmh obesity, panic attack, migraines, asthma, hyperlipidemia, presents to this ED c/o left sided chest pain x 3-4 days. Patient stated pain is "squezzing" "pulsating", last for several seconds. Patient admits chest pain was intermittent, 4-6 times a day, but today it occurs ever hour, lasting for few seconds. Pain is worsen with movement and palpation. Pain radiates to left arm. Patient stated she has been busy, and she has not started cholesterol medication. Patient also noted mild sob. Denies trauma, fever, abdominal pain, or urinary symptoms. (Camilo Fernandes) Past Medical History - Provider Review Nursing Documentation Reviewed: Yes - Infectious Disease Hx of Infectious Diseases: None - Cardiac Other/Comment: high triglycerides diet controlled - Pulmonary Hx Respiratory Disorders: Yes Hx Asthma: Yes (yes; intermittent) - Neurological Hx Migraine: Yes - HEENT Hx HEENT Disorder: No (wears glasses) - Renal Hx Renal Disorder: No - Endocrine/Metabolic Hx Endocrine Disorders: No - Hematological/Oncological Hx Blood Disorders: No - Integumentary Hx Dermatological Disorder: No - Musculoskeletal/Rheumatological Hx Falls: No - Gastrointestinal Hx Gastrointestinal Disorders: Yes Hx Gastroesophageal Reflux: Yes - Genitourinary/Gynecological Hx Genitourinary Disorders: Yes Hx Urinary Tract Infection: Yes - Psychiatric Hx Psychophysiologic Disorder: No Hx Substance Use: No - Anesthesia Hx Anesthesia: No <Camilo Fernandes P - Last Filed: 12/25/16 02:15> Family/Social History - Physician Review Nursing Documentation Reviewed: Yes Family/Social History: Other (noncontributory) Smoking Status: Never Smoked Hx Alcohol Use: Yes (social) Hx Substance Use: No <Camilo Fernandes P - Last Filed: 12/25/16 02:15> Allergies/Home Meds <Camilo Fernandes P - Last Filed: 12/25/16 02:15> <Raffy Grover P - Last Filed: 12/25/16 04:54> Allergies/Adverse Reactions: Allergies Iodine and Iodide Containing Produc Allergy (Verified 09/30/16 08:58) RASH diphenhydramine [From Benadryl] Adverse Reaction (Verified 09/30/16 08:58) DIZZINESS Home Medications: Home Meds Medication Instructions Recorded Confirmed Albuterol Sulfate [Proair Hfa] 2 puff IH Q6 12/17/16 12/25/16 Rizatriptan Benzoate [Maxalt Lap Regulator] 5 mg PO PRN PRN 12/17/16 12/25/16 amLODIPine [Norvasc] 2.5 mg PO DAILY 12/17/16 12/25/16 Review of Systems - Review of Systems Constitutional: Normal. absent: Fatigue, Weight Change, Fevers Eyes: Normal ENT: Normal Respiratory: Normal. absent: SOB, Cough Cardiovascular: Chest Pain. absent: Palpitations, Edema, Calf Pain, GRIMES, Orthopnea Gastrointestinal: Normal. absent: Abdominal Pain, Nausea, Vomiting Genitourinary Female: Normal. absent: Dysuria, Frequency, Hematuria Musculoskeletal: Normal Skin: Normal Neurological: Normal. absent: Headache, Dizziness Endocrine: Normal Hemo/Lymphatic: Normal Psychiatric: Normal <Camilo Fernandes P - Last Filed: 12/25/16 02:15> Vital Signs Temp Pulse Resp BP Pulse Ox 12/25/16 03:37 85 20 105/72 96 12/25/16 02:19 98.9 F 80 18 99/69 L 100 12/25/16 00:29 99.0 F 84 20 144/87 100 Medical Decision Making - EKG Interpretation Interpreted by ED Physician: Yes (NSR @ 75 bpm. Normal interval) Type: 12 lead EKG Comparison: No previous EKG avail. <Camilo Fernandes P - Last Filed: 12/25/16 02:15> Reassessment Condition: Re-examined, Improved <Raffy Grover P - Last Filed: 12/25/16 04:54> ED Course and Treatment: 12/25/16 04:53 Troponins were trended to our troponin was drawn and was negative given that she has had a recent stress test last week , i feel she is safe to discharge ( Raffy Grover) - Lab Interpretations Lab Results: 12/25/16 01:19 12/25/16 01:19 Lab Results 12/25/16 03:00: Troponin I 0.02 D 12/25/16 01:19: Sodium 138, Potassium 4.1, Chloride 102, Carbon Dioxide 26, Anion Gap 14, BUN 16, Creatinine 0.8, Est GFR ( Amer) > 60, Est GFR (Non- Af Amer) > 60, Random Glucose 105, Calcium 9.9, Magnesium 2.1, Total Bilirubin 0.6, AST 27, ALT 48, Alkaline Phosphatase 48, Lactate Dehydrogenase 452, Total Creatine Kinase 88, Troponin I < 0.01, Total Protein 8.3, Albumin 4.5, Globulin 3.8, Albumin/Globulin Ratio 1.2 12/25/16 01:19: Urine Color Yellow, Urine Appearance Clear, Urine pH 7.0, Ur Specific [place] 1.010, Urine Protein Negative, Urine Glucose (UA) Negative, Urine Ketones Negative, Urine Blood Negative, Urine Nitrate Negative, Urine Bilirubin Negative, Urine Urobilinogen 0.2, Ur Leukocyte Esterase Negative 12/25/16 01:19: WBC 10.4 D, RBC 4.58, Hgb 14.1, Hct 40.4, MCV 88.2, MCH 30.8, MCHC 34.9, RDW 12.8, Plt Count 248, MPV 10.5, Gran % 59.4, Lymph % (Auto) 29.0, [place] % (Auto) 5.5, Eos % (Auto) 5.8 H, Baso % (Auto) 0.3, Gran # 6.17, Lymph # 3.0, [place] # 0.6, Eos # 0.6, Baso # 0.03 - RAD Interpretation Narrative RAD Interpretations (Text): 12/25/16 02:17 CXR: NAD (Camilo Fernandes) Radiology Orders: 12/25/16 00:53 CHEST PORTABLE [RAD] Stat - Medication Orders Current Medication Orders: Discontinued Medications Alprazolam (Xanax) 0.5 mg PO STAT STA PRN Reason: Protocol Stop: 12/25/16 00:55 Last Admin: 12/25/16 01:30 Dose: 0.5 mg Aspirin (Aspirin) 325 mg PO STAT STA Stop: 12/25/16 00:53 Last Admin: 12/25/16 01:30 Dose: 325 mg - PA / SHRIMPER / Resident Statement / has examined the patient and agrees with the treatment plan. <Raffy Grover P - Last Filed: 12/25/16 04:54> Disposition/Present on Arrival - Present on Arrival History of DVT/PE: No History of Uncontrolled Diabetes: No Urinary Catheter: No History of Decub. Ulcer: No History Surgical Site Infection Following: None <Camilo Fernandes P - Last Filed: 12/25/16 02:15> - Present on Arrival Any Indicators Present on Arrival: No History of DVT/PE: No History of Uncontrolled Diabetes: No Urinary Catheter: No - Disposition Have Diagnosis and Disposition been Completed?: Yes Disposition Time: 04:53 Patient Plan: Discharge <Raffy Grover P - Last Filed: 12/25/16 04:54> - Disposition Diagnosis: Chest pain Disposition: HOME/ ROUTINE Patient Problems: Current Active Problems Problem Status Onset Chest pain Acute Condition: IMPROVED Discharge Instructions (ExitCare): Chest Pain (ED) Referrals: PCP,NO [Primary Care Provider] - Follow up with primary Forms: [employer] (Wallisian)
[2016-12-25 01:56] LABS: URINE BILIRUBIN NEGATIVE (NEGATIVE); URINE BLOOD NEGATIVE (NEGATIVE); URINE GLUCOSE (UA) NEGATIVE (NEGATIVE); URINE KETONE NEGATIVE (NEGATIVE); URINE LEUKOCYTE ESTERASE NEGATIVE Leu/uL (NEGATIVE); URINE PROTEIN NEGATIVE mg/dL (<30 mg/dL); URINE UROBILINOGEN 0.2 E.U./dL (<1 E.U./dL)
[2016-12-25 01:57] LABS: BASO # 0.03 K/mm3 (0.0-2.0); BASO % 0.3 % (0.0-3.0); EOS # 0.6 (0.0-0.7); EOS % 5.8 % (1.5-5.0); GRAN # 6.17 (1.4-6.5); GRAN % 59.4 % (50.0-68.0); HEMATOCRIT 40.4 % (36.0-48.0); MEAN CELL VOLUME 88.2 fl (80.0-105.0); MEAN CORPUSCULAR HEMOGLOBIN 30.8 pg (25.0-35.0); MEAN CORPUSCULAR HGB CONC 34.9 g/dl (31.0-37.0); MEAN PLATELET VOLUME 10.5 fl (7.0-11.0); MONO # 0.6 (0.1-0.6); MONO % 5.5 % (1.0-6.0); RED CELL DISTRIBUTION WIDTH 12.8 % (11.5-14.5); WHITE BLOOD COUNT 10.4 10^3/ul (4.5-11.0)
[2016-12-25 01:58] LABS: URINE APPEARANCE CLEAR (CLEAR); URINE COLOR YELLOW (YELLOW)
[2016-12-25 02:02] LABS: ALB/GLOB RATIO 1.2 (1.1-1.8); BILIRUBIN,TOTAL 0.6 mg/dL (0.2-1.3); CALCIUM 9.9 mg/dL (8.4-10.5); GFR AFRICAN-AMERICAN > 60; GLUCOSE,RANDOM 105 mg/dL (70-110); TOTAL PROTEIN 8.3 g/dL (5.8-8.3)
[2016-12-25 02:05] LABS: ALKALINE PHOSPHATASE 48 U/L (38-126); ALT/SGPT 48 U/L (7-56); AST/SGOT 27 U/L (14-36); BLOOD UREA NITROGEN 16 mg/dL (7-21); CARBON DIOXIDE 26 mmol/L (21-33); CHLORIDE 102 mmol/L (98-107); MAGNESIUM 2.1 mg/dL (1.7-2.2); POTASSIUM 4.1 mmol/L (3.6-5.0); SODIUM 138 mmol/L (132-148)
[2016-12-25 02:13] LABS: TROPONIN I < 0.01 ng/mL
[2016-12-25 03:22] VITALS: TEMP 98.9
[2016-12-25 03:38] VITALS: RESP 20; O2SAT 96
[2016-12-25 04:55] VITALS: BP 107/78; PULSE 81
--- NOTE | 2016-12-25 10:22 | RAD ---
HISTORY: cp COMPARISON: 12/17/2016 FINDINGS: LUNGS: No active pulmonary disease. PLEURA: No significant pleural effusion identified, no pneumothorax apparent. CARDIOVASCULAR: Normal. OSSEOUS STRUCTURES: No significant abnormalities. VISUALIZED UPPER ABDOMEN: Normal. OTHER FINDINGS: None. IMPRESSION: No active disease.
--- NOTE | 2016-12-25 23:20 | CARD ---
APPROVED REPORT EKG Measurement Heart [id number] NM 140P26 [id number] <Conclusion> Normal sinus rhythm Normal ECG
== END 2016-12-25 05:04 | disposition home or self-care (01) ==
LOC: ED 00:19
DX: R07.9 Chest pain, unspecified (principal); E78.5 Hyperlipidemia, unspecified; K21.9 Gastro-esophageal reflux disease without esophagitis

== ENCOUNTER 2017-06-08 10:52 | Emergency (ER) | payer BC ==
[2017-06-08 11:13] VITALS: BMI 31.0
[2017-06-08 11:20] VITALS: TEMP 98.4
[2017-06-08 11:38] LABS: URINE BILIRUBIN NEGATIVE (NEGATIVE); URINE BLOOD NEGATIVE (NEGATIVE); URINE GLUCOSE (UA) NEGATIVE (NEGATIVE); URINE LEUKOCYTE ESTERASE NEGATIVE Leu/uL (NEGATIVE); URINE PROTEIN NEGATIVE mg/dL (<30 mg/dL); URINE UROBILINOGEN 0.2 E.U./dL (<1 E.U./dL)
[2017-06-08 11:39] LABS: URINE APPEARANCE CLOUDY (CLEAR); URINE COLOR YELLOW (YELLOW)
--- NOTE | 2017-06-08 11:42 | RAD ---
HISTORY: Chest pain COMPARISON: 12/25/2016. FINDINGS: LUNGS: The lungs are well inflated and clear. PLEURA: No significant pleural effusion identified, no pneumothorax apparent. CARDIOVASCULAR: Normal. OSSEOUS STRUCTURES: No significant abnormalities. VISUALIZED UPPER ABDOMEN: Normal. OTHER FINDINGS: None. IMPRESSION: No active pulmonary disease.
[2017-06-08] MEDS ORDERED: Sodium Chloride 0.9% 1,000 ML IV STA (11:59)
[2017-06-08 12:19] LABS: ALB/GLOB RATIO 1.4 (1.1-1.8); ALBUMIN 4.3 g/dL (3.0-4.8); ALT/SGPT 45 U/L (7-56); AST/SGOT 26 U/L (14-36); BLOOD UREA NITROGEN 13 mg/dL (7-21); CALCIUM 9.6 mg/dL (8.4-10.5); GFR AFRICAN-AMERICAN > 60; GFR NON-AFRICAN AMERICAN > 60
[2017-06-08 12:21] LABS: BASO # 0.03 K/mm3 (0.0-2.0); BASO % 0.4 % (0.0-3.0); EOS # 0.3 (0.0-0.7); EOS % 3.9 % (1.5-5.0); GRAN # 4.84 (1.4-6.5); GRAN % 70.3 % (50.0-68.0); HEMOGLOBIN 13.3 g/dL (12.0-16.0); LYMPH # 1.5 (1.2-3.4); LYMPH % 21.5 % (22.0-35.0); MEAN CORPUSCULAR HEMOGLOBIN 29.8 pg (25.0-35.0); MEAN CORPUSCULAR HGB CONC 34.2 g/dl (31.0-37.0); MEAN PLATELET VOLUME 9.7 fl (7.0-11.0); MONO # 0.3 (0.1-0.6); MONO % 3.9 % (1.0-6.0); RBC 4.47 10^6/uL (3.5-6.1); RED CELL DISTRIBUTION WIDTH 12.7 % (11.5-14.5); WHITE BLOOD COUNT 6.9 10^3/ul (4.5-11.0)
[2017-06-08 12:29] LABS: TROPONIN I < 0.01 ng/mL
[2017-06-08] MEDS ORDERED: Iodixanol 320 MG/ML 100 ML BOTTLE IV ONE (12:46)
--- NOTE | 2017-06-08 13:15 | CT ---
PROCEDURE: CT Chest with contrast (Pulmonary Angiogram) HISTORY: r/o PE COMPARISON: None available. TECHNIQUE: Axial computed tomography images were obtained of the chest in the pulmonary arterial phase of enhancement. Coronal and sagittal reformatted images were created and reviewed. Intravenous contrast dose: 100 cc of Visipaque Radiation dose: Total exam DLP = 339 mGy-cm. This CT exam was performed using one or more of the following dose reduction techniques: Automated exposure control, adjustment of the mA and/or kV according to patient size, and/or use of iterative reconstruction technique. FINDINGS: PULMONARY ARTERIES: Unremarkable. No pulmonary embolism. AORTA: No acute findings. No thoracic aortic aneurysm. LUNGS: Unremarkable. No nodule, mass or pulmonary consolidation. PLEURAL SPACES: Unremarkable. No effusion or pneuomothorax. HEART: Unremarkable. No cardiomegaly. No significant pericardial effusion. LYMPH NODES: No lymphadenopathy. BONES, CHEST WALL: Unremarkable. No fracture or destructive lesion OTHER FINDINGS: Fatty infiltration of the liver IMPRESSION: Unremarkable CT pulmonary angiogram. No pulmonary embolus.
[2017-06-08 13:16] VITALS: BP 117/80; PULSE 75; RESP 18; O2SAT 100
--- NOTE | 2017-06-08 15:39 | ED PDOC ---
Arrival/HPI - General Chief Complaint: Shortness Of Breath Time Seen by Provider: 06/08/17 11:14 Historian: Patient - History of Present Illness Narrative History of Present Illness (Text): 06/08/17 15:34 A 47 year old female presents to the emergency department complaining of sharp chest pain and shortness of breath since yesterday. Patient reports she recently traveled back from [place] yesterday after a 5 day stay. She also notes non-bloody watery diarrhea and was seen at an urgent care where she was prescribed antibiotics. Patient denies any fever, chills, nausea, vomiting, abdominal pain, cough or any other complaints. Of note patient had a normal stress test 12/2016. Time/Duration: Other (yesterday) Symptom Course: Unchanged Past Medical History - Provider Review Nursing Documentation Reviewed: Yes - Infectious Disease Hx of Infectious Diseases: None - Cardiac Other/Comment: high triglycerides diet controlled - Pulmonary Hx Respiratory Disorders: Yes Hx Asthma: Yes (yes; intermittent) - Neurological Hx Migraine: Yes - HEENT Hx HEENT Disorder: No (wears glasses) - Renal Hx Renal Disorder: No - Endocrine/Metabolic Hx Endocrine Disorders: No - Hematological/Oncological Hx Blood Disorders: No - Integumentary Hx Dermatological Disorder: No - Musculoskeletal/Rheumatological Hx Falls: No - Gastrointestinal Hx Gastrointestinal Disorders: Yes Hx Gastroesophageal Reflux: Yes - Genitourinary/Gynecological Hx Genitourinary Disorders: Yes Hx Urinary Tract Infection: Yes - Psychiatric Hx Psychophysiologic Disorder: No Hx Substance Use: No - Anesthesia Hx Anesthesia: No Family/Social History - Physician Review Nursing Documentation Reviewed: Yes Family/Social History: No Known Family HX Smoking Status: Never Smoked Hx Alcohol Use: Yes (social) Frequency of alcohol use: Socially Hx Substance Use: No Allergies/Home Meds Allergies/Adverse Reactions: Allergies Iodine and Iodide Containing Produc Allergy (Verified 09/30/16 08:58) RASH diphenhydramine [From Benadryl] Adverse Reaction (Verified 09/30/16 08:58) DIZZINESS Home Medications: Home Meds Medication Instructions Recorded Confirmed Rizatriptan Benzoate [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 absent: Cough Cardiovascular: Chest Pain Gastrointestinal: Diarrhea. absent: Abdominal Pain, Nausea, Vomiting Physical Exam Vital Signs Reviewed: Yes Vital Signs Temp Pulse Resp BP Pulse Ox 06/08/17 13:15 75 18 117/80 100 06/08/17 11:55 17 97 06/08/17 11:19 98.4 F 86 17 135/54 L 99 Temperature: Afebrile Blood Pressure: Hypotensive Pulse: Regular Respiratory Rate: Normal Appearance: Positive for: Well-Appearing, Non-Toxic, Comfortable Pain Distress: None Mental Status: Positive for: Alert and Oriented X 3 - Systems Exam Head: Present: Atraumatic, Normocephalic Pupils: Present: PERRL Extroacular Muscles: Present: EOMI Conjunctiva: Present: Normal Mouth: Present: Moist Mucous Membranes Neck: Present: Normal Range of Motion Respiratory/Chest: Present: Clear to Auscultation, Good Air Exchange. No: Respiratory Distress, Accessory Muscle Use Cardiovascular: Present: Regular Rate and Rhythm, Normal S1, S2. No: Murmurs Abdomen: No: Tenderness, Distention, Peritoneal Signs Back: Present: Normal Inspection Upper Extremity: Present: Normal Inspection. No: Cyanosis, Edema Lower Extremity: Present: Normal Inspection. No: Edema Neurological: Present: GCS=15, CN II-XII Intact, Speech Normal Skin: Present: Warm, Dry, Normal Color. No: Rashes Psychiatric: Present: Alert, Oriented x 3, Normal Insight, Normal Concentration Medical Decision Making ED Course and Treatment: 06/08/17 15:34 Impression: A 47 year old female with sharp chest pain and shortness of breath. Patient notes diarrhea. Recent travel yesterday. Plan: -- Angio chest CT -- Chest xray -- EKG -- Labs -- Urinalysis -- IV fluids -- Reassess and disposition Progress Notes: EKG shows NSR at [address]-segment elevations, normal intervals. Interpreted by me. Report Date : 06/08/2017 11:40:54 Procedure: Chest xray Dictator : Azul Mirza MD IMPRESSION: No active pulmonary disease. Report Date : 06/08/2017 13:14:16 PROCEDURE: CT Chest with contrast (Pulmonary Angiogram) Dictator : Shade Melendrez MD IMPRESSION: Unremarkable CT pulmonary angiogram. No pulmonary embolus. On re-evaluation, patient feels better and is in no acute distress. I have discussed the results and plan with the patient, who expresses understanding. Patient in agreement with plan to be discharged home. Patient is stable for discharge. Patient was instructed to follow up with physician or return if symptoms worsen or new concerning symptoms arise. - Lab Interpretations Lab Results: 06/08/17 11:42 06/08/17 11:42 Lab Results 06/08/17 11:42: Sodium 139, Potassium 4.4, Chloride 103, Carbon Dioxide 26, Anion Gap 14, BUN 13, Creatinine 0.7, Est GFR ( Amer) > 60, Est GFR (Non- Af Amer) > 60, Random Glucose 102, Calcium 9.6, Magnesium 2.0, Total Bilirubin 0.5, AST 26, ALT 45, Alkaline Phosphatase 45, Lactate Dehydrogenase 421, Total Creatine Kinase 91, Troponin I < 0.01 D, Total Protein 7.4, Albumin 4.3, Globulin 3.0, Albumin/Globulin Ratio 1.4 06/08/17 11:42: WBC 6.9 D, RBC 4.47, Hgb 13.3, Hct 38.9, MCV 87.0, MCH 29.8, MCHC 34.2, RDW 12.7, Plt Count 248, MPV 9.7, Gran % 70.3 H, Lymph % (Auto) 21.5 L, [place] % (Auto) 3.9, Eos % (Auto) 3.9, Baso % (Auto) 0.4, Gran # 4.84, Lymph # (Auto) 1.5, [place] # (Auto) 0.3, Eos # (Auto) 0.3, Baso # (Auto) 0.03 06/08/17 11:30: Urine Color Yellow, Urine Appearance Cloudy, Urine pH 6.0, Ur Specific Patten 1.015, Urine Protein Negative, Urine Glucose (UA) Negative, Urine Ketones Negative, Urine Blood Negative, Urine Nitrate Negative, Urine Bilirubin Negative, Urine Urobilinogen 0.2, Ur Leukocyte Esterase Negative I have reviewed the lab results: Yes - RAD Interpretation Radiology Orders: 06/08/17 11:17 CHEST PORTABLE [RAD] Stat 06/08/17 11:43 ANGIO CHEST PE PROTOCOL [CT] Stat - Medication Orders Current Medication Orders: Discontinued Medications Sodium Chloride (Sodium Chloride 0.9%) 1,000 mls @ 999 mls/hr IV .Q1H1M STA Stop: 06/08/17 12:59 Last Admin: 06/08/17 12:10 Dose: 999 mls/hr eMAR Start Stop Document 06/08/17 12:10 OCS (Rec: 06/08/17 12:10 OCS [id number]) Intravenous Solution Start Date 06/08/17 Start Time 12:10 End Date 06/08/17 End time 13:11 Total Infusion Time 61 - Scribe Statement The provider has reviewed the documentation as recorded by the Scribfranca Mckay Provider Scribe Attestation: All medical record entries made by the Scribe were at my direction and personally dictated by me. I have reviewed the chart and agree that the record accurately reflects my personal performance of the history, physical exam, medical decision making, and the department course for this patient. I have also personally directed, reviewed, and agree with the discharge instructions and disposition. Disposition/Present on Arrival - Present on Arrival Any Indicators Present on Arrival: No History of DVT/PE: No History of Uncontrolled Diabetes: No Urinary Catheter: No History of Decub. Ulcer: No History Surgical Site Infection Following: None - Disposition Have Diagnosis and Disposition been Completed?: Yes Diagnosis: Non-cardiac chest pain Disposition: HOME/ ROUTINE Disposition Time: 13:15 Condition: GOOD Discharge Instructions (ExitCare): Chest Pain That Is Not Caused by the Heart ( DC) Additional Instructions: Thank you for letting us take care of you today. The emergency medical care you received today was directed at your acute symptoms. If you were prescribed any medication, please fill it and take as directed. It may take several days for your symptoms to resolve. Return to the Emergency Department if your symptoms worsen, do not improve, or if you have any other problems. Please contact your doctor or call one of the physicians/clinics you have been referred to that are listed on the Patient Visit Information form that is included in your discharge packet. Bring any paperwork you were given at discharge with you along with any medications you are taking to your follow up visit. Our treatment cannot replace ongoing medical care by a primary care provider (PCP) outside of the emergency department. Thank you for allowing the [facility] team to be part of your care today. Follow up with your primary care doctor in 3-4 days for re-evaluation and further management. Referrals: Ezequiel GOOD,Arjun Grewal [Primary Care Provider] - Follow up with primary Forms: [employer] (Macanese), WORK NOTE
--- NOTE | 2017-06-08 18:35 | CARD ---
APPROVED REPORT EKG Measurement Heart [id number] [id number] <Conclusion> Normal sinus rhythm Cannot rule out Inferior infarct, age undetermined Abnormal ECG
== END 2017-06-08 13:50 | disposition home or self-care (01) ==
LOC: ED 10:52
DX: R07.89 Other chest pain (principal)
CPT/HCPCS: 71045; 71275; 80053; 81003; 82550; 83615; 83735; 84484; 85025; 93005; 96360; 99284; J7040; Q9967

== ENCOUNTER 2017-08-23 12:42 | Emergency (ER) | payer BC ==
[2017-08-23 13:17] VITALS: RESP 18; TEMP 98.2; BMI 30.2
--- NOTE | 2017-08-23 13:28 | ED PDOC ---
Arrival/HPI - General Chief Complaint: Chest Pain Time Seen by Provider: 08/23/17 13:10 Historian: Patient - History of Present Illness Narrative History of Present Illness (Text): 08/23/17 13:00 47 year old female, with past medical history of migraine and asthma, presents to the emergency department complaining of sudden onset of chest pain and palpitations since this morning. Patient states similar symptoms to prior episodes of chest pain for which she received extensive cardiac work-up with no acute findings. Patient informs visiting [facility] for the presented symptoms and was referred to the emergency department after "abnormal EKG". Patient informs associated headache and dizziness but denies any loss of consciousness. Patient denies any fever, chills, shortness of breath, nausea, vomiting, diarrhea, abdominal pain, shortness of breath or any other complaints. PMD: Dr. Nieves Time/Duration: 1-3 hours Symptom Onset: Gradual Symptom Course: Unchanged Quality: Aching Activities at Onset: Light Context: Home Past Medical History - Provider Review Nursing Documentation Reviewed: Yes - Infectious Disease Hx of Infectious Diseases: None - Cardiac Other/Comment: high triglycerides diet controlled - Pulmonary Hx Respiratory Disorders: Yes Hx Asthma: Yes (yes; intermittent) - Neurological Hx Migraine: Yes - HEENT Hx HEENT Disorder: No (wears glasses) - Renal Hx Renal Disorder: No - Endocrine/Metabolic Hx Endocrine Disorders: No - Hematological/Oncological Hx Blood Disorders: No - Integumentary Hx Dermatological Disorder: No - Musculoskeletal/Rheumatological Hx Musculoskeletal Disorders: Yes (clubbed feet) Hx Falls: No - Gastrointestinal Hx Gastrointestinal Disorders: Yes Hx Gastroesophageal Reflux: Yes - Genitourinary/Gynecological Hx Genitourinary Disorders: Yes Hx Urinary Tract Infection: Yes - Psychiatric Hx Psychophysiologic Disorder: Yes Hx Panic Disorder: Yes Hx Substance Use: No - Anesthesia Hx Anesthesia: No Family/Social History - Physician Review Nursing Documentation Reviewed: Yes Family/Social History: No Known Family HX Smoking Status: Never Smoked Hx Alcohol Use: Yes (social) Frequency of alcohol use: Socially Hx Substance Use: No Allergies/Home Meds Allergies/Adverse Reactions: Allergies Iodine and Iodide Containing Produc Allergy (Verified 08/23/17 13:12) RASH diphenhydramine [From Benadryl] Adverse Reaction (Verified 08/23/17 13:12) DIZZINESS Home Medications: Home Meds Medication Instructions Recorded Confirmed Rizatriptan Benzoate [Maxalt [employer] Licensee] 5 mg PO PRN PRN 12/17/16 08/23/17 Albuterol Sulfate [Proair Hfa] 1 puff INH PRN PRN 06/08/17 08/23/17 Alprazolam [Xanax] 0.25 mg PO PRN PRN 06/08/17 08/23/17 Review of Systems - Physician Review All systems were reviewed & negative as marked: Yes - Review of Systems Constitutional: absent: Fevers Respiratory: absent: SOB Cardiovascular: Chest Pain, Palpitations Gastrointestinal: absent: Abdominal Pain, Diarrhea, Nausea, Vomiting Neurological: Headache, Dizziness Physical Exam Vital Signs Reviewed: Yes Vital Signs Temp Pulse Pulse Resp BP BP Pulse Ox 08/23/17 18:40 74 18 95/72 L 97 08/23/17 13:18 82 123/86 08/23/17 13:13 98.2 F 90 18 123/86 99 Temperature: Afebrile Blood Pressure: Normal Pulse: Regular Respiratory Rate: Normal Appearance: Positive for: Well-Appearing, Non-Toxic, Comfortable Pain Distress: None Mental Status: Positive for: Alert and Oriented X 3 - Systems Exam Head: Present: Atraumatic, Normocephalic Pupils: Present: PERRL Extroacular Muscles: Present: EOMI Conjunctiva: Present: Normal Neck: Present: Normal Range of Motion Respiratory/Chest: Present: Clear to Auscultation, Good Air Exchange. No: Respiratory Distress, Accessory Muscle Use Cardiovascular: Present: Regular Rate and Rhythm, Normal S1, S2. No: Murmurs Abdomen: No: Tenderness, Distention, Peritoneal Signs Back: Present: Normal Inspection Upper Extremity: Present: Normal Inspection. No: Cyanosis, Edema Lower Extremity: Present: Normal Inspection. No: Edema Neurological: Present: GCS=15, CN II-XII Intact, Speech Normal Skin: Present: Warm, Dry, Normal Color. No: Rashes Psychiatric: Present: Alert, Oriented x 3, Normal Insight, Normal Concentration Medical Decision Making ED Course and Treatment: 08/23/17 13:00 Impression: 47 year old female presents to the emergency department for chest pain and palpitations. Differential Diagnoses: atypical chest pain Plan: -- EKG -- Labs -- Chest X-Ray -- Aspirin -- Reassess and disposition Prior Visits: Notes and results from previous visits were reviewed. Progress Notes: 08/23/17 12:49 EKG: Ordered, reviewed and independently interpreted the EKG. Rate:84 BPM Rhythm: NSR Interpretation: Normal axis, normal interval, Q/T wave inversion at lead III otherwise no ST/T wave changes. No change from previous EKG performed on 2017. 08/23/17 15:27 Chest X-ray reviewed by radiologist, shows no active disease. No changes from prior examination. Results discussed with patient. No acute findings. Patient has been evaluated for chest pain multiple times in the past with no definitive diagnosis. Advised following up with her PMD as needed. - Lab Interpretations Lab Results: 08/23/17 13:12 08/23/17 14:12 Lab Results 08/23/17 14:12: Sodium 141, Potassium 4.2, Chloride 103, Carbon Dioxide 24, Anion Gap 17, BUN 13, Creatinine 0.7, Est GFR ( Amer) > 60, Est GFR (Non- Af Amer) > 60, Random Glucose 94, Calcium 10.2, Magnesium 2.1, Total Bilirubin 0.5, AST 25, ALT 39, Alkaline Phosphatase 50, Lactate Dehydrogenase 370, Total Creatine Kinase 84, Troponin I < 0.01, Total Protein 7.7, Albumin 4.6, Globulin 3.2, Albumin/Globulin Ratio 1.4 08/23/17 13:12: WBC 8.3 D, RBC 5.20, Hgb 15.8 D, Hct 44.8, MCV 86.2, MCH 30.4 , MCHC 35.3, RDW 12.9, Plt Count 270, MPV 10.6, Gran % 60.1, Lymph % (Auto) 29.7 , [place] % (Auto) 5.7, Eos % (Auto) 4.1, Baso % (Auto) 0.4, Gran # 4.97, Lymph # ( Auto) 2.5, [place] # (Auto) 0.5, Eos # (Auto) 0.3, Baso # (Auto) 0.03 - RAD Interpretation Radiology Orders: 08/23/17 13:27 CHEST PORTABLE [RAD] Stat Janitorial Assistant: Radiologist - Medication Orders Current Medication Orders: Discontinued Medications Aspirin (Aspirin) 325 mg PO STAT STA Stop: 08/23/17 13:28 Last Admin: 08/23/17 14:09 Dose: 325 mg - Scribe Statement The provider has reviewed the documentation as recorded by the Feribe Ivan Hope. All medical record entries made by the Jimeneze were at my direction and personally dictated by me. I have reviewed the chart and agree that the record accurately reflects my personal performance of the history, physical exam, medical decision making, and the department course for this patient. I have also personally directed, reviewed, and agree with the discharge instructions and disposition. Disposition/Present on Arrival - Present on Arrival Any Indicators Present on Arrival: No History of DVT/PE: No History of Uncontrolled Diabetes: No Urinary Catheter: No History of Decub. Ulcer: No History Surgical Site Infection Following: None - Disposition Have Diagnosis and Disposition been Completed?: Yes Diagnosis: Chest pain, Palpitations Disposition: HOME/ ROUTINE Disposition Time: 18:30 Patient Problems: Current Active Problems Problem Status Onset Chest pain Acute Palpitations Acute Condition: GOOD Discharge Instructions (ExitCare): Chest Pain (ED) Additional Instructions: MONIQUE ONOFRE, thank you for letting us take care of you today. Your provider was Virgen Graves MD and you were treated for CHEST PAIN. The emergency medical care you received today was directed at your acute symptoms. If you were prescribed any medication, please fill it and take as directed. It may take several days for your symptoms to resolve. Return to the Emergency Department if your symptoms worsen, do not improve, or if you have any other problems. Please contact your doctor or call one of the physicians/clinics you have been referred to that are listed on the Patient Visit Information form that is included in your discharge packet. Bring any paperwork you were given at discharge with you along with any medications you are taking to your follow up visit. Our treatment cannot replace ongoing medical care by a primary care provider outside of the emergency department. Thank you for allowing the [facility] team to be part of your care today. If you had an X-Ray or CT scan: A Radiologist will review the ED reading if any change in treatment is needed we will contact you. If you had a blood, urine, or wound culture: It will take several days for the results, if any change in treatment is needed we will contact you. If you had an STI test: It will take 48 hours for the results. Please call after 1 week if you have not heard back. Referrals: Ezequiel GOOD,Arjun Grewal [Primary Care Provider] - Follow up with primary Forms: [employer] (Malaysian), WORK NOTE
[2017-08-23 13:50] LABS: BASO # 0.03 K/mm3 (0.0-2.0); BASO % 0.4 % (0.0-3.0); EOS # 0.3 (0.0-0.7); EOS % 4.1 % (1.5-5.0); GRAN # 4.97 (1.4-6.5); GRAN % 60.1 % (50.0-68.0); HEMOGLOBIN 15.8 g/dL (12.0-16.0); LYMPH # 2.5 (1.2-3.4); LYMPH % 29.7 % (22.0-35.0); MEAN CELL VOLUME 86.2 fl (80.0-105.0); MEAN CORPUSCULAR HEMOGLOBIN 30.4 pg (25.0-35.0); MEAN CORPUSCULAR HGB CONC 35.3 g/dl (31.0-37.0); MEAN PLATELET VOLUME 10.6 fl (7.0-11.0); MONO # 0.5 (0.1-0.6); MONO % 5.7 % (1.0-6.0); RBC 5.2 10^6/uL (3.5-6.1); RED CELL DISTRIBUTION WIDTH 12.9 % (11.5-14.5); WHITE BLOOD COUNT 8.3 10^3/ul (4.5-11.0)
[2017-08-23 14:34] LABS: ALB/GLOB RATIO 1.4 (1.1-1.8); ALBUMIN 4.6 g/dL (3.0-4.8); ALT/SGPT 39 U/L (7-56); AST/SGOT 25 U/L (14-36); BLOOD UREA NITROGEN 13 mg/dL (7-21); CALCIUM 10.2 mg/dL (8.4-10.5); GFR AFRICAN-AMERICAN > 60; GFR NON-AFRICAN AMERICAN > 60
[2017-08-23 14:44] LABS: TROPONIN I < 0.01 ng/mL
--- NOTE | 2017-08-23 16:55 | CARD ---
APPROVED REPORT Date of service: 08/23/2017 EKG Measurement Heart [id number] CA 142P52 [id number] <Conclusion> Normal sinus rhythm Normal ECG
--- NOTE | 2017-08-23 18:19 | RAD ---
Date of service: 08/23/2017 HISTORY: chest pain COMPARISON: 06/08/2017. FINDINGS: LUNGS: No active pulmonary disease. PLEURA: No significant pleural effusion identified, no pneumothorax apparent. CARDIOVASCULAR: No radiographic findings to suggest acute or significant cardiovascular disease. OSSEOUS STRUCTURES: No significant abnormalities. VISUALIZED UPPER ABDOMEN: Normal. OTHER FINDINGS: None. IMPRESSION: No active disease. No significant interval change compared to the prior examination(s).
[2017-08-23 18:41] VITALS: BP 95/72; PULSE 74; O2SAT 97
== END 2017-08-23 18:40 | disposition home or self-care (01) ==
LOC: ED 12:42
DX: R07.9 Chest pain, unspecified (principal); R00.2 Palpitations; E78.1 Pure hyperglyceridemia; K21.9 Gastro-esophageal reflux disease without esophagitis

== ENCOUNTER 2017-11-02 00:05 | Observation (INO) | payer BC ==
[2017-11-02 00:18] VITALS: BMI 30.8
--- NOTE | 2017-11-02 00:31 | ED PDOC ---
Arrival/HPI - General Chief Complaint: Chest Pain Time Seen by Provider: 11/02/17 00:14 Historian: Patient - History of Present Illness Narrative History of Present Illness (Text): 11/02/17 00:31 Chandrika Sterling is a 47 year old female, whose past medical history includes migraines, asthma, anxiety, and hyperlipidemia, who presents to the ED complaining of chest pain. Patient states she developed sudden onset left chest pain, radiating to back, neck, and lower ribs at 23:10. Patient notes over the last few weeks, she had muscle spasms to the area and some cold-like symptoms. Patient denies any history of fever, chills, trauma, shortness of breath, abdominal pain, nausea, vomiting, or any other complaints. Patient reports family history of cardiac arrest. Symptom Onset: Gradual Symptom Course: Unchanged Activities at Onset: Light Context: Home Past Medical History - Provider Review Nursing Documentation Reviewed: Yes - Infectious Disease Hx of Infectious Diseases: None - Cardiac Hx Cardiac Disorders: No Other/Comment: high triglycerides diet controlled - Pulmonary Hx Respiratory Disorders: Yes Hx Asthma: Yes (yes; intermittent) - Neurological Hx Migraine: Yes - HEENT Hx HEENT Disorder: No (wears glasses) - Renal Hx Renal Disorder: No - Endocrine/Metabolic Hx Endocrine Disorders: No - Hematological/Oncological Hx Blood Disorders: No - Integumentary Hx Dermatological Disorder: No - Musculoskeletal/Rheumatological Hx Musculoskeletal Disorders: Yes (clubbed feet) Hx Falls: No - Gastrointestinal Hx Gastrointestinal Disorders: Yes Hx Gastroesophageal Reflux: Yes - Genitourinary/Gynecological Hx Genitourinary Disorders: Yes Hx Urinary Tract Infection: Yes - Psychiatric Hx Psychophysiologic Disorder: Yes Hx Panic Disorder: Yes Hx Substance Use: No - Anesthesia Hx Anesthesia: No Family/Social History - Physician Review Nursing Documentation Reviewed: Yes Family/Social History: Unknown Family HX Smoking Status: Never Smoked Hx Alcohol Use: Yes (social) Hx Substance Use: No Allergies/Home Meds Allergies/Adverse Reactions: Allergies Iodine and Iodide Containing Produc Allergy (Verified 08/23/17 13:12) RASH diphenhydramine [From Benadryl] Adverse Reaction (Verified 08/23/17 13:12) DIZZINESS Home Medications: Home Meds Medication Instructions Recorded Confirmed Rizatriptan Benzoate [Maxalt Manager Payment] 5 mg PO PRN PRN 12/17/16 11/02/17 Albuterol Sulfate [Proair Hfa] 1 puff INH PRN PRN 06/08/17 11/02/17 Alprazolam [Xanax] 0.25 mg PO PRN PRN 06/08/17 11/02/17 Review of Systems - Physician Review All systems were reviewed & negative as marked: Yes - Review of Systems Constitutional: Normal. absent: Fevers Eyes: Normal ENT: Normal Respiratory: Normal Cardiovascular: Chest Pain Gastrointestinal: Normal. absent: Abdominal Pain, Diarrhea, Nausea, Vomiting Genitourinary Female: Normal. absent: Dysuria, Frequency, Hematuria, Urine Output Changes Musculoskeletal: Normal. absent: Back Pain, Neck Pain Skin: Normal. absent: Rash Neurological: Normal. absent: Headache, Dizziness Endocrine: Normal Hemo/Lymphatic: Normal Psychiatric: Normal Physical Exam Vital Signs Reviewed: Yes Vital Signs Temp Pulse Resp BP Pulse Ox 11/02/17 02:40 85 18 150/78 99 11/02/17 00:20 100.4 F H 84 22 140/89 100 Temperature: Febrile Blood Pressure: Normal Pulse: Regular Respiratory Rate: Normal Appearance: Positive for: Well-Appearing, Non-Toxic, Comfortable Pain Distress: None Mental Status: Positive for: Alert and Oriented X 3 - Systems Exam Head: Present: Atraumatic, Normocephalic Pupils: Present: PERRL Extroacular Muscles: Present: EOMI Conjunctiva: Present: Normal Mouth: Present: Moist Mucous Membranes Neck: Present: Normal Range of Motion. No: Meningeal Signs, MIDLINE TENDERNESS, Paraspinal Tenderness Respiratory/Chest: Present: Clear to Auscultation, Good Air Exchange, Tender to Palpation (Tenderness over left anterior chest wall with swelling). No: Respiratory Distress, Accessory Muscle Use Cardiovascular: Present: Regular Rate and Rhythm, Normal S1, S2. No: Murmurs Abdomen: Present: Normal Bowel Sounds. No: Tenderness, Distention, Peritoneal Signs Upper Extremity: Present: Normal Inspection. No: Cyanosis, Edema Lower Extremity: Present: Normal Inspection. No: Edema Neurological: Present: GCS=15, CN II-XII Intact, Speech Normal Skin: Present: Warm, Dry, Normal Color. No: Rashes Psychiatric: Present: Alert, Oriented x 3, Normal Insight, Normal Concentration Medical Decision Making ED Course and Treatment: 11/02/17 00:31 Impression: 47 year old female complaining of sudden onset of left-sided chest pain radiating to back, neck, and lower ribs with some swelling. Plan: -- EKG -- CXR -- Labs, cardiac enzymes -- IV fluids -- Toradol -- Reassess and disposition Prior Visits: Notes and results from previous visits were reviewed. Progress Notes: Reviewed EKG, NSR at [address]-segment elevations or depressions, no T-wave inversions, normal intervals. 11/02/17 01:22 CXR reviewed, shows no acute processes. 11/02/17 02:[address] Calix, who is aware and agrees with plan. Accepts pt in to his service. Pt will go to remote telemetry observation for chest pain. executive vice president and chief operating officer notified. - Lab Interpretations Lab Results: 11/02/17 00:50 11/02/17 00:50 Lab Results 11/02/17 00:50: WBC 8.9, RBC 4.64, Hgb 14.0, Hct 41.0, MCV 88.4, MCH 30.2, MCHC 34.1, RDW 12.9, Plt Count 249, MPV 9.8 11/02/17 00:50: Sodium 140, Potassium 4.6, Chloride 103, Carbon Dioxide 26, Anion Gap 16, BUN 14, Creatinine 1.1, Est GFR ( Amer) > 60, Est GFR (Non- Af Amer) 53, Random Glucose 117 H, Calcium 9.6, Total Bilirubin 0.4, AST 34, ALT 56, Alkaline Phosphatase 51, Lactate Dehydrogenase 484, Total Creatine Kinase 124, Troponin I < 0.01, Total Protein 7.8, Albumin 4.3, Globulin 3.5, Albumin/Globulin Ratio 1.3 11/02/17 00:50: PT 11.2, INR 0.98, APTT 30.4 I have reviewed the lab results: Yes - RAD Interpretation Radiology Orders: 11/02/17 00:38 CHEST PORTABLE [RAD] Stat Shine Worker: ED Physician - EKG Interpretation Interpreted by ED Physician: Yes Type: 12 lead EKG - Medication Orders Current Medication Orders: Sodium Chloride (Sodium Chloride 0.9%) 1,000 mls @ 100 mls/hr IV .Q10H ALFA Last Admin: 11/02/17 02:09 Dose: 100 mls/hr eMAR Start Stop Document 11/02/17 02:09 RD (Rec: 11/02/17 02:09 RD [id number]) Intravenous Solution Start Date 11/02/17 Start Time 02:09 Discontinued Medications Aspirin (Aspirin) 325 mg PO ONCE STA Stop: 11/02/17 02:24 Last Admin: 11/02/17 02:35 Dose: 325 mg Ketorolac Tromethamine (Toradol) 30 mg IVP ONCE ONE Stop: 11/02/17 00:39 Last Admin: 11/02/17 01:03 Dose: 30 mg MAR Pain Assessment Document 11/02/17 01:03 RD (Rec: 11/02/17 01:03 RD [id number]) Pain Reassessment Is this a pain reassessment? No Sleep Is patient sleeping during reassessment? No Presence of Pain Presence of Pain Yes IVP Administration Document 11/02/17 01:03 RD (Rec: 11/02/17 01:03 RD [id number]) Charges for Administration # of IVP Administrations 1 - Scribe Statement The provider has reviewed the documentation as recorded by the Scribe Natasha Mcallister All medical record entries made by the Scribe were at my direction and personally dictated by me. I have reviewed the chart and agree that the record accurately reflects my personal performance of the history, physical exam, medical decision making, and the department course for this patient. I have also personally directed, reviewed, and agree with the discharge instructions and disposition. Disposition/Present on Arrival - Present on Arrival Any Indicators Present on Arrival: No History of DVT/PE: No History of Uncontrolled Diabetes: No Urinary Catheter: No History of Decub. Ulcer: No History Surgical Site Infection Following: None - Disposition Have Diagnosis and Disposition been Completed?: Yes Diagnosis: Chest pain Disposition: HOSPITALIZED Disposition Time: 02:29 Patient Plan: Observation Patient Problems: Current Active Problems Problem Status Onset Chest pain Acute Condition: STABLE
[2017-11-02] MEDS ORDERED: Sodium Chloride 0.9% 1,000 ML IV SCH (00:45)
[2017-11-02 01:13] LABS: MEAN CELL VOLUME 88.4 fl (80.0-105.0); MEAN CORPUSCULAR HEMOGLOBIN 30.2 pg (25.0-35.0); MEAN CORPUSCULAR HGB CONC 34.1 g/dl (31.0-37.0); MEAN PLATELET VOLUME 9.8 fl (7.0-11.0); RBC 4.64 10^6/uL (3.5-6.1); RED CELL DISTRIBUTION WIDTH 12.9 % (11.5-14.5); WHITE BLOOD COUNT 8.9 10^3/ul (4.5-11.0)
[2017-11-02 01:16] LABS: INR 0.98; PARTIAL THROMBOPLASTIN TIME 30.4 Seconds (25.1-36.5); PROTHROMBIN TIME 11.2 SECONDS (9.4-12.5)
[2017-11-02 01:28] LABS: ALB/GLOB RATIO 1.3 (1.1-1.8); ALBUMIN 4.3 g/dL (3.0-4.8); ALT/SGPT 56 U/L (7-56); AST/SGOT 34 U/L (14-36); BLOOD UREA NITROGEN 14 mg/dL (7-21); CALCIUM 9.6 mg/dL (8.4-10.5); GFR NON-AFRICAN AMERICAN 53
[2017-11-02 01:40] LABS: TROPONIN I < 0.01 ng/mL
[2017-11-02] MEDS: Levalbuterol 0.63 MG/3 ML Inhal Soln UD IH SCH ×2 (08:15→13:08)
[2017-11-02 08:45] LABS: HDL CHOLESTEROL 22 mg/dL (29-60)
[2017-11-02 08:53] VITALS: BP 121/84; PULSE 80; RESP 20; TEMP 97.9; O2SAT 97
[2017-11-02 08:55] LABS: LDL CHOLESTEROL 51 mg/dL (0-129)
[2017-11-02 08:56] LABS: TROPONIN I < 0.01 ng/mL
[2017-11-02 08:58] LABS: FREE T4 0.96 ng/dL (0.78-2.19); T4 6.2 ug/dL (5.5-11.0)
--- NOTE | 2017-11-02 09:13 | RAD ---
HISTORY: fever COMPARISON: Chest x-ray performed 08/23/17 TECHNIQUE: Chest, one view. FINDINGS: Examination limited by habitus. LUNGS: Subtle left lower lobe infiltrate. Please note that chest x-ray has limited sensitivity for the detection of pulmonary masses. PLEURA: No significant pleural effusion identified. No definite pneumothorax . CARDIOVASCULAR: Heart size appears within normal limits. OSSEOUS STRUCTURES: No acute osseous abnormality identified. VISUALIZED UPPER ABDOMEN: Unremarkable. OTHER FINDINGS: None. IMPRESSION: Subtle left lower lobe infiltrate.
--- NOTE | 2017-11-02 09:56 | CARD ---
APPROVED REPORT Date of service: 11/02/2017 EKG Measurement Heart [id number] <Conclusion> Normal sinus rhythm Normal ECG No change
[2017-11-02] MEDS ORDERED: Enoxaparin 40 mg Syringe SC SCH (10:00)
[2017-11-02 12:44] LABS: TROPONIN I < 0.01 ng/mL
--- NOTE | 2017-11-02 12:49 | CON ---
DATE: 11/02/2017 CARDIOLOGY CONSULTATION HISTORY: The patient is a 47-year-old woman, who presents with chest pain. Her chest pain is described as tender to touch, increases with inspiration. The patient has had similar symptoms in the past in which she underwent a stress test several months ago, which was unremarkable. Her echocardiogram was unremarkable. CT scan of the chest was unremarkable. The patient's cardiac risk factors includes a strong family history for CAD. SOCIAL HISTORY: The patient denies smoking. No diabetes mellitus. No hypertension. She does suffer from anxiety. REVIEW OF SYSTEMS: Fourteen-point review of systems is reviewed in detail. No active cardiac issues are noted. PHYSICAL EXAMINATION: VITAL SIGNS: Blood pressure is 121/84, the heart rate is in the 80s. NECK: Negative JVD. LUNGS: Without rales. HEART: Reveals S1, S2. EXTREMITIES: Without edema. CHEST: Her entire skin of the chest wall is tender to touch. LABORATORY DATA: Sed rate is 24, hemoglobin is 14. Chemistries: BUN and creatinine unremarkable. Troponins are negative x2. C-reactive protein is 0.87. Her triglycerides are 634. IMPRESSION: 1. Atypical chest pain. 2. No evidence for acute coronary syndrome. 3. Hypertriglyceridemia. 4. Borderline diabetes mellitus. 5. Family history for coronary artery disease. PLAN: Given these findings, the patient's symptoms are not of cardiac origin. We will discontinue telemetry today. However, I have discussed with the patient about the need for cardiac risk reduction program given her strong family history and the high triglycerides and borderline diabetes mellitus. The patient agrees to follow up as an outpatient for a strong cardiac risk reduction program. Oli Dixon MD
--- NOTE | 2017-11-02 13:31 | CARD ---
APPROVED REPORT Date of service: 11/02/2017 EKG Measurement Heart [id number] <Conclusion> Sinus tachycardia Q in lll Mildly prolonged QTc
--- NOTE | 2017-11-02 14:35 | US ---
HISTORY: Leg pain and swelling. Evaluate for DVT PHYSICIAN(S): Oli Sumner MD. TECHNIQUE: Duplex sonography and color-flow Doppler with graded compression were used to evaluate the deep venous systems of both lower extremities. FINDINGS: The visualized deep venous systems of both lower extremities are sonographically normal and compressible. Normal wave forms and augmentation are seen. There is no sonographic evidence for deep venous thrombosis in the visualized segments of both lower extremities. IMPRESSION: No sonographic evidence for deep venous thrombosis in the visualized segments of both lower extremities.
--- NOTE | 2017-11-02 15:16 | CP.PCM.HP ---
History of Present Illness - History of Present Illness History of Present Illness: PGY-[address] Calix Mrs Sterling is a 47 year old female with a PMHx of migraines, asthma, anxiety, and hyperlipidemia, who presents to the ED complaining of left-sided chest pain worse with movement. This is her 3rd ER visit for similar complaints in the last year. Patient states she developed sudden onset left chest pain, radiating to back, neck, and lower ribs at 23:10. Patient notes over the last few weeks, she had muscle spasms to the area and some cold-like symptoms. Patient denies any history of fever, chills, trauma, shortness of breath, abdominal pain, nausea, vomiting, or any other complaints. Family history includes father had a cardiac arrest. PMHx: migraines, asthma, anxiety, and hyperlipidemia Allergies: Iodine, Diphenhydramine Home meds: maxalt 5mg po prn, xanax 0.25mg po prn, albuterol 1 puff inh prn SocialHx: denies tobacco, alcohol or illicit drugs FamilyHx: Father had a cardiac arrest Present on Admission - Present on Admission Any Indicators Present on Admission: No Review of Systems - Constitutional Constitutional: absent: Chills, Fever - EENT Eyes: absent: Blurred Vision Nose/Mouth/Throat: absent: Nasal Congestion - Cardiovascular Cardiovascular: Chest Pain, Chest Pain at Rest, Chest Pain with Activity. absent: Dyspnea, Dyspnea on Exertion, Leg Edema, Lightheadedness - Respiratory Respiratory: absent: Cough - Gastrointestinal Gastrointestinal: absent: Abdominal Pain - Genitourinary Genitourinary: absent: Dysuria - Integumentary Integumentary: absent: Bleeding Lesions Past Patient History - Infectious Disease Hx of Infectious Diseases: None - Past Social History Smoking Status: Never Smoked - CARDIAC Hx Cardiac Disorders: No Other/Comment: high triglycerides diet controlled - PULMONARY Hx Respiratory Disorders: Yes Hx Asthma: Yes (yes; intermittent) - NEUROLOGICAL Hx Migraine: Yes - HEENT Hx HEENT Problems: No (wears glasses) - RENAL Hx Chronic Kidney Disease: No - ENDOCRINE/METABOLIC Hx Endocrine Disorders: No - HEMATOLOGICAL/ONCOLOGICAL Hx Blood Disorders: No - INTEGUMENTARY Hx Dermatological Problems: No - MUSCULOSKELETAL/RHEUMATOLOGICAL Hx Musculoskeletal Disorders: Yes (clubbed feet) Hx Falls: No - GASTROINTESTINAL Hx Gastrointestinal Disorders: Yes Hx Gastroesophageal Reflux: Yes - GENITOURINARY/GYNECOLOGICAL Hx Genitourinary Disorders: Yes Hx Urinary Tract Infection: Yes - PSYCHIATRIC Hx Psychophysiologic Disorder: Yes Hx Panic Symptoms: Yes Hx Substance Use: No - SURGICAL HISTORY Hx Surgeries: Yes - ANESTHESIA Hx Anesthesia: No Meds Home Medications: Home Medication List Medication Instructions Recorded Confirmed Type Ergocalciferol [Drisdol] 50,000 iu PO QWK #10 cap 11/02/17 Rx Icosapent Ethyl [Vascepa] 2 gm PO BID #28 capsule 11/02/17 Rx Allergies/Adverse Reactions: Allergies Allergy/AdvReac Type Severity Reaction Status Date / Time Iodine and Iodide Containing Allergy RASH Verified 08/23/17 13:12 Produc diphenhydramine AdvReac DIZZINESS Verified 08/23/17 13:12 [From Benadryl] Physical Exam - Constitutional Appears: Well, No Acute Distress - Head Exam Head Exam: ATRAUMATIC, NORMAL INSPECTION - Eye Exam Eye Exam: EOMI, Normal appearance - ENT Exam ENT Exam: Mucous Membranes Moist - Neck Exam Neck exam: Positive for: Normal Inspection - Respiratory Exam Respiratory Exam: Clear to Auscultation Bilateral, NORMAL BREATHING PATTERN. absent: Rales, Rhonchi, Wheezes - Cardiovascular Exam Cardiovascular Exam: REGULAR RHYTHM, +S1, +S2. absent: Tachycardia, JVD - GI/Abdominal Exam GI & Abdominal Exam: Normal Bowel Sounds. absent: Tenderness - Extremities Exam Extremities exam: Positive for: normal inspection. Negative for: pedal edema - Neurological Exam Neurological exam: Alert, CN II-XII Intact, Oriented x3 - Psychiatric Exam Psychiatric exam: Normal Affect, Normal Mood - Skin Skin Exam: Normal Color, Warm Results - Vital Signs Recent Vital Signs: Last Vital Signs Temp 97.9 F 11/02/17 08:45 Pulse 80 11/02/17 08:45 Resp 20 11/02/17 08:45 BP 121/84 11/02/17 08:45 Pulse Ox 97 11/02/17 08:45 - Labs Result Diagrams: 11/02/17 00:50 11/02/17 00:50 Labs: Laboratory Results - last 24 hr 11/02/17 11/02/17 11/02/17 00:50 00:50 00:50 WBC 8.9 RBC 4.64 Hgb 14.0 Hct 41.0 MCV 88.4 MCH 30.2 MCHC 34.1 RDW 12.9 Plt Count 249 MPV 9.8 ESR PT 11.2 INR 0.98 APTT 30.4 D-Dimer, Quantitative Sodium 140 Potassium 4.6 Chloride 103 Carbon Dioxide 26 Anion Gap 16 BUN 14 Creatinine 1.1 Est GFR ( Amer) > 60 Est GFR (Non-Af Amer) 53 Random Glucose 117 H Calcium 9.6 Total Bilirubin 0.4 AST 34 ALT 56 Alkaline Phosphatase 51 Lactate Dehydrogenase 484 Total Creatine Kinase 124 Troponin I < 0.01 C-React Prot High Sens Total Protein 7.8 Albumin 4.3 Globulin 3.5 Albumin/Globulin Ratio 1.3 Triglycerides Cholesterol LDL Cholesterol Direct HDL Cholesterol 25-OH Vitamin D Total Free T4 Thyroxine (T4) TSH 3rd Generation 11/02/17 11/02/17 11/02/17 08:10 08:10 08:10 WBC RBC Hgb Hct MCV MCH MCHC RDW Plt Count MPV ESR 24 H PT INR APTT D-Dimer, Quantitative Sodium Potassium Chloride Carbon Dioxide Anion Gap BUN Creatinine Est GFR ( Amer) Est GFR (Non-Af Amer) Random Glucose Calcium Total Bilirubin AST ALT Alkaline Phosphatase Lactate Dehydrogenase Total Creatine Kinase 108 Troponin I < 0.01 C-React Prot High Sens 0.87 L Total Protein Albumin Globulin Albumin/Globulin Ratio Triglycerides 634 H Cholesterol 160 LDL Cholesterol Direct 51 HDL Cholesterol 22 L 25-OH Vitamin D Total Free T4 0.96 Thyroxine (T4) 6.2 TSH 3rd Generation 0.40 L 11/02/17 11/02/17 11/02/17 08:10 12:00 12:00 WBC RBC Hgb Hct MCV MCH MCHC RDW Plt Count MPV ESR PT INR APTT D-Dimer, Quantitative < 200 Sodium Potassium Chloride Carbon Dioxide Anion Gap BUN Creatinine Est GFR ( Amer) Est GFR (Non-Af Amer) Random Glucose Calcium Total Bilirubin AST ALT Alkaline Phosphatase Lactate Dehydrogenase Total Creatine Kinase 95 Troponin I < 0.01 C-React Prot High Sens Total Protein Albumin Globulin Albumin/Globulin Ratio Triglycerides Cholesterol LDL Cholesterol Direct HDL Cholesterol 25-OH Vitamin D Total 25.1 L Free T4 Thyroxine (T4) TSH 3rd Generation Assessment & Plan - Assessment and Plan (Free Text) Plan: Mrs Sterling is a 47 year old female with a PMHx of migraines, asthma, anxiety, and hyperlipidemia, who presents to the ED complaining of left-sided chest pain: Atypical Chest Pain -Underwent stress test for similar complaint several months ago which was unremarkable -Troponins negative x3 -Echo unremarkable -EKG normal -CXR showed subtle left lower lobe infiltrate however patient with no cough, sob, leukocytosis and afebrile -D-dimer negative -Aspirin 81mg po qd -Atorvastatin 40mg po qd -Consult cardio, Dr potter * Outpatient follow-up for a strong cardiac risk reduction program Lower Extremity Pain -Venous duplex LE b/l negative for DVT Hypertriglyceridemia -Triglycerdies 634 on admission -Vascepa 2g po bid Vitamin D Deficiency -Vit D 25 low on admission -Drisdol 50,000IU po qwk
--- NOTE | 2017-11-02 18:14 | CARD ---
APPROVED REPORT Date of service: 11/02/2017 EXAM: Two-dimensional and M-mode echocardiogram with Doppler and color Doppler. INDICATION CVA/TIA 2D DIMENSIONS Left Atrium (2D)3.7 (1.6-4.0cm)IVSd1.2 (0.7-1.1cm) LVDd3.4 (3.9-5.9cm)PWd1.0 (0.7-1.1cm) LVDs2.3 (2.5-4.0cm)FS (%) 33.2 % LVEF (%)63.1 (>50%) M-Mode DIMENSIONS Aortic Root2.30 (2.2-3.7cm)Aortic Cusp Exc.1.50 (1.5-2.0cm) Aortic Valve AoV Peak Ejllnitg630.0cm/Inna Peak GR.9mmHg Mitral Valve MV E Sjtywstb02.8cm/sMV A Xhydqxam486.0cm/sE/A ratio0.9 TDI E/Lateral E'0.0E/Medial E'0.0 LEFT VENTRICLE The left ventricle is normal size. There is normal left ventricular wall thickness. The left ventricular function is normal. The left ventricular ejection fraction is within the normal range. There is normal LV segmental wall motion. RIGHT VENTRICLE The right ventricle is normal size. The right ventricular systolic function is normal. ATRIA The left atrium size is normal. The right atrium size is normal. The interatrial septum is intact with no evidence for an atrial septal defect. AORTIC VALVE The aortic valve is normal in structure. No aortic regurgitation is present. There is no aortic valvular stenosis. MITRAL VALVE The mitral valve is normal in structure. There is no mitral valve regurgitation noted. TRICUSPID VALVE The tricuspid valve is normal in structure. There is no tricuspid valve regurgitation noted. PULMONIC VALVE The pulmonic valve is not well visualized. GREAT VESSELS The aortic root is normal in size. The IVC is normal in size and collapses >50% with inspiration. PERICARDIAL EFFUSION There is no pleural effusion. There is no pericardial effusion. <Conclusion> Technically limited study. Chamber sizes appear within normal limits. Normal LV systolic function. No gross valvular abnormalities seen. No obvious cardiac source of embolus found, but if clinical suspicion is high, consider ASAD imaging.
--- NOTE | 2017-11-03 04:48 | HP ---
The patient was seen and examined in room 366, bed 1. Later on the patient was evaluated by Cardiology and the patient was cleared for discharge. CHIEF COMPLAINT AND HISTORY OF PRESENT ILLNESS: The patient is a 47-year-old [place] female who presented to the emergency room with complaining of left-sided rib cage pain, left shoulder pain, left arm pain, left neck pain, back pain and left posterior rib cage and back pain which started the night before. The patient came to the emergency room as ambulatory walk-in. According to the triage note, above complaints were noted. Patient presented to the emergency room to the ER physician, the patient presented with complaining of chest pain, sudden onset, radiating to the back, ribs. Further the patient had noticed that the pain has been there for many weeks but also developing spasm and also the patient's symptoms worsen. REVIEW OF SYSTEMS: Thirteen-system review was done, pertinent positive and negative dictated above. CODE STATUS: Full code. LIVING WILL ADVANCE DIRECTIVE: None. HEIGHT: 5 feet. Weight: 158. BMI: 31. ALLERGIES: IODINE AND IODINE CONTAINING PRODUCTS AND DIPHENHYDRAMINE. HOME MEDICATIONS: Maxalt 5 mg p.r.n., Xanax 0.25 p.r.n., albuterol ProAir inhaler. SOCIAL HISTORY: Social alcohol, denies smoking. 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 MENSTRUAL HISTORY: The patient denies being . FAMILY HISTORY: Not available. PAST MEDICAL AND SURGICAL HISTORY: History of migraine, history of questionable asthma, history of hypertension, history of gastroesophageal reflux, history of social alcohol use, history of panic syndrome and psychosocial disorder, history of asthma, history of hypertriglyceridemia. The patient's past medical history is significant for multiple hospitalization to [facility] since 06/2016, history of chest pain, history of stress test, history of normal stress test, history of hypertriglyceridemia with triglyceride level of 1433 in , history of prediabetes. 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 The patient was seen and evaluated in room 366, bed 1. The patient was admitted to remote telemetry. PHYSICAL EXAMINATION: VITAL SIGNS: T-max is 97 initially, the patient's temperature was noted to be 100.4 which was repeated right away, which was 97.8 to 97.9; telemetry shows heart rate 80, 81, 85, sinus rhythm; blood pressure 140/89, 150/78, 129/84, 121/84; respiration 18-20; O2 sat 97% to 99%. GENERAL: The patient was seen lying in the bed. HEENT: Head examination normocephalic, atraumatic. HEENT examination shows pink conjunctivae. Anicteric sclerae. No oropharyngeal lesion. No neck rigidity. CHEST: Kyphosis. LUNGS: Examination shows no rales, crackles or wheezing. CARDIOVASCULAR: S1, S2, regular rhythm. No audible murmur, gallop or rub. ABDOMEN: Soft. Positive bowel sound. GENITALIA: Female. EXTREMITIES: Shows no pitting edema, no calf tenderness, no Homans' sign. NEUROLOGIC: The patient is alert, awake, oriented x3. Cranial nerves II-XII intact. Motor strength is 5/5. Gait examination is independent as the patient is able to sit up from the lying position in the bed and stand up and take few steps around the bed without any assistance. No gross neuro deficit noted. PSYCHIATRIC: Examination is negative. DIAGNOSTICS: CBC is within normal limit. ESR is 24. PT/PTT, D-dimer is negative. Chemistry shows glucose of 117. Troponin all three sets are negative. Triglyceride is 634, LDL is 22. Vitamin D 25-hydroxy is 25.1. EKG was within normal limits. The patient had a venous Doppler of the lower extremities for evaluation of the DVT which was negative. Chest x-ray was reported to be negative, final report pending. Echo report was done, the results are pending. IMPRESSION: 1. Chest pain. 2. Probable musculoskeletal chest pain of the left ribcage and chest wall. 3. Chest wall and ribcage pain. 4. Low grade fever (resolved). 5. Hypertriglyceridemia. 6. Hypovitaminosis D. 7. Mildly elevated erythrocyte sedimentation rate. 8. Elevated body mass index. PLAN: At present, the patient was admitted to telemetry for observation. The patient was started on treatment. The patient's further management will be dependent upon the patient's clinical condition, hemodynamic status and as per the patient's response to therapeutic intervention. Dictated and electronically signed, not read. Chicho Calix MD
--- NOTE | 2017-11-03 04:55 | DS ---
The patient was seen and evaluated by Cardiology, Dr. Dixon. The patient was cleared for discharge from cardiology perspective. The patient was discharged home on following medications; Maxalt 5 mg p.r.n., ProAir HFA p.r.n., Xanax 0.25 p.r.n., Drisdol 50,000 units weekly and Vascepa 2 g twice a day. DISCHARGE DIAGNOSES: 1. Left-sided rib cage chest wall pain and musculoskeletal pain. 2. Low grade fever, resolved. 3. Elevated body mass index. 4. Elevated erythrocyte sedimentation rate of 24. 5. Hypertriglyceridemia and hypovitaminosis D. 1. Chest pain. 2. Probable musculoskeletal chest pain of the left ribcage and chest wall. 3. Chest wall and ribcage pain. 4. Low grade fever (resolved). 5. Hypertriglyceridemia. 6. Hypovitaminosis D. 7. Mildly elevated erythrocyte sedimentation rate. 8. Elevated body mass index. The patient was advised to follow up with Dr. Calix within 1 week. Dictated and electronically signed, not read. Chicho Calix MD MTDD
[2017-11-03] MEDS ORDERED: Pantoprazole 40 mg EC Tab PO SCH (06:00)
== END 2017-11-02 16:24 | disposition home or self-care (01) ==
LOC: ED 00:05 → ERH 02:25 → 3RNO 02:48
PROVIDERS: ADMIT Internal Medicine; ATTEND Internal Medicine
DX: R07.89 Other chest pain (principal); R50.9 Fever, unspecified; R70.0 Elevated erythrocyte sedimentation rate; E78.1 Pure hyperglyceridemia; E78.5 Hyperlipidemia, unspecified; E55.9 Vitamin D deficiency, unspecified; F41.0 Panic disorder [episodic paroxysmal anxiety]; K21.9 Gastro-esophageal reflux disease without esophagitis; Z87.440 Personal history of urinary (tract) infections; Z87.09 Personal history of other diseases of the respiratory system; R73.03 Prediabetes; Z79.899 Other long term (current) drug therapy; Z82.41 Family history of sudden cardiac death; Z82.49 Family history of ischemic heart disease and other diseases of the circulatory system
CPT/HCPCS: 71045; 80053; 80061; 82306; 82550; 83615; 84439; 84443; 84484; 85027; 85378; 85610; 85651; 85730; 86140; 93005; 93306; 93970; 94640; 94760; 96372; 96374; 96376; 99285; G0378; J1650; J1885; J7030